=== PATIENT | male | born 1930 | race Caucasian/White ===

== ENCOUNTER 2017-03-10 00:04 | Inpatient (IN) | payer MEDICARE, OTHER ==
[~2017-03-10] VITALS: Ht 170.2 cm; Wt 78.5 kg
[~2017-03-10 00:04] MED LIST: ALLO100T PO; CELE200C PO; CLOP75TA2 PO; DOCU250C21 PO; DUTA0.5C PO; ESOM40CA PO; FENO145T PO; FLUT1DIS3 IH; GLYB5TAB7 PO; OLME1TAB3 PO; PARO20TA6 PO; RISE35TA PO; SITA100T PO; TAMS-12 PO
[2017-03-10] MEDS ORDERED: IV D5W 1,000 ML IV ONE ×3 (00:07→09:00)
--- NOTE | 2017-03-10 00:10 | NUR ---
TO BED 5 A 86 YO MALE [id number] FROM HOME. PER EMS REPORT, PT HAD POC BLOOD GLUCOSE "LOW", GLUCAGON GIVEN ON THE FIELD. UPON ARRIVAL TO ER, PATIENT IS AAOX3, BLOOD SUGAR WAS 40. VSS. NOTED WITH DRESSING INTACT AND CLEARN FROM PERICARDIAL DRAIN "A WEEK AGO." VSS. CARDIAC MONITORING ON. GOWNED. AWAITING FOR ER MD BECK.
--- NOTE | 2017-03-10 00:15 | NUR ---
DR CARRILLO AT BEDSIDE FOR EVAL.
[2017-03-10] MEDS ORDERED: IV SET PRIMARY PUMP SET 1 EA INFUS.SET MC ONE ×3 (00:16→09:26)
--- NOTE | 2017-03-10 00:21 | NUR ---
STARTED A SALINE LOCK ON THE LAC G18, BLOOD DRAWN AND SENT TO LAB.
[2017-03-10 00:30] LABS: BASOPHILS % (AUTO) 0.2 % (0.0-2.0); EOSINOPHILS % (AUTO) 0.2 % (0.0-6.0); HEMATOCRIT 27 % (39-51); HEMOGLOBIN 8.6 g/dL (13.5-17.5); LYMPHOCYTES # (AUTO) 0.4 /CMM (0.8-4.8); MEAN CORPUSCULAR HEMOGLOBIN 30 PG (26.0-33.0); MEAN CORPUSCULAR HGB CONC 32 g/dl (31.0-36.0); MEAN CORPUSCULAR VOLUME 91 fL (80-96); MONOCYTES # (AUTO) 1.1 /CMM (0.1-1.30); MONOCYTES % (AUTO) 10.3 % (2.0-12.0); NEUTROPHILS # (AUTO) 9.1 /CMM (1.8-8.9); NEUTROPHILS % (AUTO) 85.3 % (43.0-81.0); PLATELET COUNT (AUTO) 69 /CMM (150-450); RDW COEFFICIENT OF VARIATION 21.7 (11.5-15.0); RED BLOOD CELL COUNT(AUTO) 2.91 MIL/uL (4.5-6.0); WHITE BLOOD COUNT (AUTO) 10.6 K/uL (4.3-11.0)
[2017-03-10 00:42] LABS: CALCIUM, SERUM 7.6 mg/dL (8.5-10.1); CREATININE 2.8 mg/dL (0.6-1.3)
[2017-03-10 00:45] LABS: INR 1.14 (0.87-1.13); PROTHROMBIN TIME 12.3 SECS (9.5-12.7)
[2017-03-10 00:47] LABS: MAGNESIUM 1.6 mg/dL (1.8-2.4); PHOSPHORUS 1.6 mg/dL (2.5-4.9)
[2017-03-10] MEDS ORDERED: LATA2.5D2 EACHEYE (00:54)
[2017-03-10] MEDS ORDERED: ASPI81TA2 PO (00:54)
[2017-03-10] MEDS ORDERED: ROSU40TA PO (00:54)
[2017-03-10] MEDS ORDERED: DIGO125T PO (00:54)
[2017-03-10] MEDS ORDERED: MIDO5TAB PO (00:54)
[2017-03-10] MEDS ORDERED: MEMA28CA PO (00:54)
[2017-03-10] MEDS ORDERED: LISI2.5T2 PO (00:54)
[2017-03-10] MEDS ORDERED: COLC0.6C3 PO (00:54)
[2017-03-10] MEDS ORDERED: TIOT18CA3 INH (00:54)
[2017-03-10] MEDS ORDERED: LORA10TA7 PO (00:54)
[2017-03-10] MEDS ORDERED: AMIO200T2 PO (00:54)
[2017-03-10] MEDS ORDERED: TOLT4CAP14 PO (00:54)
[2017-03-10] MEDS ORDERED: METO25TA6 PO (00:54)
[2017-03-10 00:55] LABS: TROPONIN I 0.34 ng/mL (0.00-0.056)
[2017-03-10 00:57] LABS: BILIRUBIN,DIRECT 0.5 mg/dL (0.0-0.2); BILIRUBIN,TOTAL 0.9 mg/dL (0.2-1.0)
[2017-03-10 00:58] LABS: ALBUMIN 2.5 g/dL (3.4-5.0); DIGOXIN 1.05 ng/mL (0.90-2.00); TOTAL PROTEIN, SERUM 7.6 g/dL (6.4-8.2)
[2017-03-10 01:00] LABS: LACTIC ACID 2.3 mmol/L (0.4-2.0)
--- NOTE | 2017-03-10 01:12 | NUR ---
blood sugar rechecked, bs is 70mg/dl. Dr Phillips is notified.
[2017-03-10 01:28] LABS: ANISOCYTOSIS 1+; LYMPHOCYTES % (MANUAL) 9 % (16-48); MONOCYTES % (MANUAL) 11 % (0-11.0); NEUTROPHILS % (MANUAL) 80 (42-76); PLATELET ESTIMATE DECRE
[2017-03-10] MEDS: ALLOPURINOL 100 MG TABLET PO SCH ×2 (03:00→08:39)
[2017-03-10] MEDS ORDERED: IV D5/0.45 NACL 1,000 ML IV PRN (03:04)
--- NOTE | 2017-03-10 03:09 | NUR ---
Report given to Anna PAT chetna.
[2017-03-10 03:15] VITALS: BP 120/68
--- NOTE | 2017-03-10 03:15 | NUR ---
INDEPENDENT BEAUTY CONSULTANT ADMIT RECEIVED REPORT. PT AAOX3, CITIZ[place] SPEAKING. NO C/O OF PAIN OR DISCOMFORT AT THIS TIME. BREATHING NON-LABORED AND EVEN. ON 3L NC. TELE SHOWS V-PACING IN 60'S. HD CATH INTACT RCW. IV INTACT AND PATENT. NO S/S OF HYPOGLYCEMIA. VSS. SKIN ISSUES NOTED. LAST RECEIVED DIALYSIS YESTERDAY 03/09. ORIENATETD TO UNIT AND CALL LIGHT, WILL CONT TO MONITOR.
--- NOTE | 2017-03-10 03:18 | NUR ---
Transported to [place] [id number] via [facility], no incident noted. vss.
[2017-03-10] MEDS ORDERED: Z GUARD REMEDY 2 OZ OINT TP PRN (03:30)
[2017-03-10] MEDS ORDERED: HYDROCODONE/APAP 5/325MG 1 EACH TABLET PO PRN (03:30)
[2017-03-10] MEDS ORDERED: ZOLPIDEM TARTRATE 5 MG TABLET PO PRN (03:30)
[2017-03-10] MEDS ORDERED: MAGNESIUM HYDROXIDE 30 ML UDC PO PRN (03:30)
[2017-03-10] MEDS ORDERED: ONDANSETRON HCL/PF 4 MG/2 ML VIAL IVP PRN (03:30)
[2017-03-10] MEDS ORDERED: ACETAMINOPHEN 325 MG TABLET PO PRN (03:30)
[2017-03-10] MEDS ORDERED: MAG HYDROX/AL HYDROX/SIMETH 30 ML UDC PO PRN (03:30)
[2017-03-10] MEDS ORDERED: LACT10SO6 PO (04:54)
[2017-03-10] MEDS ORDERED: DUTA0.5C PO (04:54)
[2017-03-10] MEDS ORDERED: ERGO500047 PO (04:54)
[2017-03-10] MEDS ORDERED: ESOM40CA PO (04:54)
[2017-03-10] MEDS ORDERED: FLUT1DIS3 INH (04:54)
[2017-03-10] MEDS ORDERED: ICOS1CAP PO (04:54)
[2017-03-10] MEDS ORDERED: FEBU40TA PO (04:54)
[2017-03-10] MEDS ORDERED: GLIP5TAB13 PO (04:54)
--- NOTE | 2017-03-10 05:55 | NUR ---
RN NOTE PT BS 26, RECHECK 23, D50 AND ORANGE JUICE GIVEN. WILL CONT TO MONITOR.
[2017-03-10] MEDS ORDERED: DEXTROSE 50%-WATER 50 ML DISP.SYRIN ONE (06:00)
[2017-03-10] MEDS ORDERED: DEXTROSE 50%-WATER 50 ML DISP.SYRIN IVP PRN (06:30)
[2017-03-10] MEDS ORDERED: DEXTROSE 50%-WATER 50 ML DISP.SYRIN IVP ONE (06:30)
--- NOTE | 2017-03-10 06:54 | NUR ---
RN NOTE PT AAOX3, DENIES CP/SOB. ON 3L NC. NO S/S OF ANY DISTRESS. BS NOW 75, WAS GIVEN D50 AT 0600. IV INTACT AND PATENT TOLERATING D5-1/2 NS WELL AT 60 CC/HR. TELE SHOWS VPACING. FAMILY AT BEDSIDE. CALL LIGHT IN REACH, WILL F/U WITH DAY SHIFT FOR ERICK.
--- NOTE | 2017-03-10 07:30 | NUR ---
CORPORATE TREASURY ANALYST AM NOTES PATIENT IN BED, AAOX3, CROATIAN SPEAKING. ON 3L O2 NASAL CANULA, NAD, NO SOB, RESPIRATION UNLABORED, TELEMETRY READS V PACING HR 60, NO C/O OF PAIN OR DISCOMFORT AT THIS TIME. HD CATH INTACT RCW. LEFT FA 18G IV ACCESS WITH D5 1/2 NS INFUSING AT 60 ML/HR. SITE CLEAR. NO S/S OF HYPOGLYCEMIA. VSS. SEE NURSING FLOWSHEET FOR SKIN ISSUES. BED BOUND FOR NOW, CCHO DIET. CALL LIGHT WITHIN REACH, BED LOW LOCKED, SR UP X 2, AT BEDSIDE. WILL CONT TO MONITOR.
[2017-03-10 08:00] VITALS: BP 111/61
[2017-03-10] MEDS: PANTOPRAZOLE 40 MG TABLET.DR PO SCH (08:39)
[2017-03-10] MEDS: LORATADINE 10 MG TABLET PO SCH (08:39)
[2017-03-10] MEDS: ASPIRIN 81 MG TAB.CHEW PO SCH (08:39)
[2017-03-10] MEDS: DOCUSATE SODIUM 250 MG CAPSULE PO SCH (08:39)
[2017-03-10] MEDS: BLOOD SUGAR DIAGNOSTIC 1 EACH STRIP IN SCH ×4 (08:39→20:43)
[2017-03-10] MEDS: AMIODARONE HCL 200 MG TABLET PO SCH (08:40)
[2017-03-10] MEDS: METOPROLOL TARTRATE 25 MG TABLET PO SCH ×2 (08:41→16:56)
[2017-03-10] MEDS: FLUTICASONE/SALMETEROL DISKUS IH SCH ×2 (08:41→16:58)
[2017-03-10] MEDS: PAROXETINE HCL 20 MG TABLET PO SCH (08:46)
[2017-03-10] MEDS: TAMSULOSIN 0.4 MG CAP.SR.24H PO SCH (08:46)
[2017-03-10] MEDS: MIDODRINE HCL (5MG) 5 MG TABLET PO SCH (08:46)
[2017-03-10] MEDS ORDERED: TOLTERODINE TARTRATE 4 MG PO SCH (09:00)
[2017-03-10] MEDS: LISINOPRIL (5MG) 5 MG TABLET PO SCH (09:00)
[2017-03-10] MEDS ORDERED: TIOTROPIUM BROMIDE 6 CAP/BOX CAP.W.DEV IH SCH (09:00)
[2017-03-10] MEDS ORDERED: CELECOXIB 100 MG CAPSULE PO SCH (09:00)
[2017-03-10] MEDS ORDERED: Medication Not On Formulary EA (Sitagliptin Phosphate (Januvia) 100 MG) PO SCH (09:00)
[2017-03-10] MEDS ORDERED: FENOFIBRATE NANOCRYS (145 MG) 145 MG TABLET PO SCH (09:00)
[2017-03-10] MEDS ORDERED: Medication Not On Formulary EA (Esomeprazole Mag Trihydrate (Nexium) 40 MG) PO SCH (09:00)
[2017-03-10] MEDS ORDERED: LINAGLIPTIN 5 MG TABLET PO SCH (09:07)
[2017-03-10 09:28] LABS: MAGNESIUM 1.7 mg/dL (1.8-2.4)
[2017-03-10] MEDS ORDERED: COLCHICINE 0.6 MG TABLET PO PRN (09:30)
--- NOTE | 2017-03-10 09:30 | NUR ---
MS RN NOTES TELEMETRY DC'D BY DR. LOVING EARLIER. IVF SWITCHED TO D5W. ACCUCHECK DONE. BS 55 MG/DL, GAVE ORANGE JUICE AND BREAKFAST, REPEAT BS 57 MG/DL. ADMINISTERED D50 IV.
[2017-03-10] MEDS: DUTASTERIDE (0.5 MG) 0.5 MG CAPSULE PO SCH (10:11)
[2017-03-10] MEDS: TOLTERODINE 2 MG CAP.SR PO SCH (10:15)
--- NOTE | 2017-03-10 10:20 | NUR ---
MS RN NOTES BS RECHECKED. 123 MG/DL.
--- NOTE | 2017-03-10 12:15 | NUR ---
MS RN NOTES ACCUCHECK DONE. BS 94 MG/DL. NO INSULIN COVERAGE GIVEN.
[2017-03-10] MEDS ORDERED: HYDR20TA3 PO (12:30)
[2017-03-10] MEDS: DIGOXIN 0.125 MG TABLET PO SCH (13:00)
[2017-03-10] MEDS: ROSUVASTATIN CALCIUM 40 MG PO SCH (13:00)
[2017-03-10] MEDS: MEMANTINE HCL 28 MG PO SCH (13:00)
[2017-03-10] MEDS: IPRATROPIUM NEB FS 0.5 MG/2.5 ML AMPUL.NEB NEB SCH ×2 (14:15→19:24)
[2017-03-10 16:00] VITALS: BP 96/60
[2017-03-10 16:22] LABS: THYROID STIMULATING HORMONE 1.518 uIU/mL (0.358-3.74)
--- NOTE | 2017-03-10 16:57 | NUR ---
MS RN NOTES ACCUCHECK DONE. BS 49 MG/DL. GAVE D50. WILL RECHECK BS.
[2017-03-10] MEDS: DEXTROSE 50%-WATER 50 ML DISP.SYRIN IVP PRN (17:08)
--- NOTE | 2017-03-10 17:18 | NUR ---
MS RN NOTES BS RE CHECKED. 127 MG/DL. OFFERED DINNER TRAY. AT BEDSIDE.
[2017-03-10 18:00] VITALS: BP 96/60
--- NOTE | 2017-03-10 19:27 | NUR ---
MS RN CLOSING NOTES PATIENT RESTING IN BED, AAOX3, M[place]GAS[place] SPEAKING. AT BEDSIDE. ON 3L O2 NASAL CANULA, NAD, NO SOB, RESPIRATION UNLABORED, NO C/O OF PAIN OR DISCOMFORT AT THIS TIME. HD CATH INTACT RCW. LEFT FA 18G IV ACCESS WITH D5W INFUSING AT 70 ML/HR. SITE CLEAR. NO S/S OF HYPOGLYCEMIA. VSS. AMBULATES TO BATHROOM WITH ASSIST. CCHO DIET. CALL LIGHT WITHIN REACH, BED LOW LOCKED, SR UP X 2, ALL NEEDS MET. ENDORSED TO NEXT SHIFT FOR ERICK.
--- NOTE | 2017-03-10 19:30 | NUR ---
MS RN OPENING NOTES: PATIENT IN BED, AOX4, SAMOAN SPEAKING, FAMILY AT BEDSIDE TO HELP TRANSLATE. ON O2 AT 3 LPM VIA NC, BREATHING EVEN AND UNLABORED. BREATH SOUNDS DIMINISHED AT BASES. PATIENT HAS RCW HD CATH WITH CLEAN AND INTACT DRESSING. PIV OVER LFA G 18 INTACT AND PATENT, INFUSING WELL WITH D5W RUNNING AT 70 ML/HR. PROVIDED FOR COMFORT AND SAFETY. SIDERAILS UP X3, BED IN LOWEST AND LOCKED POSITION. WILL CONT TO MONITOR.
[2017-03-10 20:33] VITALS: BP 89/45
--- NOTE | 2017-03-10 20:45 | NUR ---
RN NOTES: BP CHECKED AT 89/45, RECHECKED AT 88/42. PER DAUGHTER, PATIENT'S MIDODRINE IS 5 MG PO BID PRN, NOT DAILY. INFORMED DR MENDEZ. PER MD, OK TO FOLLOW PER MEDICATION SCHEDULE. ORDER NOTED AND CARRIED OUT,
--- NOTE | 2017-03-10 20:56 | NUR ---
RN NOTES: PATIENT'S BLOOD SUGAR CHECKED AT 88 MG/DL AT THIS TIME. PROVIDED LIGHT SNACK TO PATIENT. WILL CONT TO MONITOR.
[2017-03-10] MEDS ORDERED: MIDODRINE HCL (5MG) 5 MG TABLET PO PRN (21:00)
[2017-03-10] MEDS: LATANOPROST EYE DROP 0.005% 2.5 ML BOTTLE EACHEYE SCH (21:15)
[2017-03-11] VITALS (11 sets, daily range): BP systolic 90–125; BP diastolic 42–72
[2017-03-11] MEDS: BLOOD SUGAR DIAGNOSTIC 1 EACH STRIP IN SCH ×6 (00:46→21:17)
[2017-03-11] MEDS: IPRATROPIUM NEB FS 0.5 MG/2.5 ML AMPUL.NEB NEB SCH ×4 (01:26→20:12)
[2017-03-11] MEDS: DEXTROSE 50%-WATER 50 ML DISP.SYRIN IVP PRN ×4 (01:28→17:36)
--- NOTE | 2017-03-11 01:32 | NUR ---
RN NOTES: PATIENT'S BS: 40. CHECKED BY LAB AT 38. ADMINISTERED 1 AMP DEXTROSE 50 %. PATIENT AOX3, NO ACUTE CHANGE IN LOC. WILL CONT TO MONITOR.
--- NOTE | 2017-03-11 02:17 | NUR ---
RN NOTES: PATIENT'S BS CHECKED AT 63 MG/DL. NO CHANGES IN LOC AT THIS TIME. WILL CONT TO MONITOR.
--- NOTE | 2017-03-11 03:12 | NUR ---
RN NOTES: RECHECKED PATIENT'S BS: 70 MG/DL. GAVE LIGHT SNACK. WILL CONT TO MONITOR.
--- NOTE | 2017-03-11 05:00 | NUR ---
RN NOTES: PATIENT'S BS: 103. WILL CONT TO MONITOR.
[2017-03-11 07:20] LABS: HEMATOCRIT 23 % (39-51); HEMOGLOBIN 7.4 g/dL (13.5-17.5); LYMPHOCYTES # (AUTO) 0.7 /CMM (0.8-4.8); LYMPHOCYTES % (AUTO) 6.9 % (20.0-44.0); MEAN CORPUSCULAR HEMOGLOBIN 30 PG (26.0-33.0); MEAN CORPUSCULAR HGB CONC 32 g/dl (31.0-36.0); MEAN CORPUSCULAR VOLUME 92 fL (80-96); MONOCYTES # (AUTO) 1.9 /CMM (0.1-1.30); MONOCYTES % (AUTO) 18.3 % (2.0-12.0); NEUTROPHILS # (AUTO) 7.6 /CMM (1.8-8.9); NEUTROPHILS % (AUTO) 74.8 % (43.0-81.0); PLATELET COUNT (AUTO) 63 /CMM (150-450); RDW COEFFICIENT OF VARIATION 21.8 (11.5-15.0); WHITE BLOOD COUNT (AUTO) 10.1 K/uL (4.3-11.0)
[2017-03-11] MEDS ORDERED: PANTOPRAZOLE 40 MG TABLET.DR PO SCH (07:30)
--- NOTE | 2017-03-11 07:30 | NUR ---
MS RN CLOSING NOTES: PATIENT IN BED, AOX4, ON O2 AT 3 LPM VIA NC, BREATHING EVEN AND UNLABORED. REMAINED ANURIC THROUGH SHIFT. PIV OVER LFA G18 INTACT NAD PATENT TO FLUSH. DUE MEDS GIVEN. GAVE SMALL FREQUENT SNACKS THROUGH SHIFT. PROVIDED FOR COMFORT AND SAFETY, BED IN LOWEST AND LOCKED POSITION AND SIDERAILS UP X3. ENDORSED TO AM BI العلي FOR ERICK.
--- NOTE | 2017-03-11 07:38 | NUR ---
RN MS OPENING NOTES RECEIVED PATIENT IN BED, AWAKE, HEAD OF BED ELEVATED, NO SOB OR DISTRESS NOTED, ON O2 3LPM VIA NC AND TOLERATED WELL. ALERT AND ORIENTED TIMES 4. IV INTACT AND PATENT. KEPT PATIENT CLEAN AND COMFORTABLE IN BED, CALL LIGHT WITHIN PATIENT REACH, WILL CONTINUE TO MONITOR ACCORDINGLY
[2017-03-11 07:47] LABS: ALBUMIN 2.2 g/dL (3.4-5.0); BILIRUBIN,TOTAL 0.8 mg/dL (0.2-1.0); CALCIUM, SERUM 7.5 mg/dL (8.5-10.1); CREATININE 3.8 mg/dL (0.6-1.3); MAGNESIUM 1.6 mg/dL (1.8-2.4); PHOSPHORUS 1.6 mg/dL (2.5-4.9); POTASSIUM 4.8 mmol/L (3.5-5.1); TOTAL PROTEIN, SERUM 6.5 g/dL (6.4-8.2)
[2017-03-11 07:53] LABS: ANISOCYTOSIS 1+; BAND % (MANUAL) 4 % (0.0-5.0); LYMPHOCYTES % (MANUAL) 7 % (16-48); MONOCYTES % (MANUAL) 9 % (0-11.0); NEUTROPHILS % (MANUAL) 80 (42-76); PLATELET ESTIMATE DECREASED
[2017-03-11] MEDS: PANTOPRAZOLE 40 MG TABLET.DR PO SCH (08:34)
[2017-03-11] MEDS: MIDODRINE HCL (5MG) 5 MG TABLET PO SCH (08:36)
[2017-03-11] MEDS: DOCUSATE SODIUM 250 MG CAPSULE PO SCH (08:37)
[2017-03-11] MEDS: LORATADINE 10 MG TABLET PO SCH (08:38)
[2017-03-11] MEDS: HYDROCORTISONE 5 MG TABLET PO SCH (08:39)
[2017-03-11] MEDS: TAMSULOSIN 0.4 MG CAP.SR.24H PO SCH (08:40)
[2017-03-11] MEDS: PAROXETINE HCL 20 MG TABLET PO SCH (08:40)
[2017-03-11] MEDS: TOLTERODINE 2 MG CAP.SR PO SCH (08:52)
[2017-03-11] MEDS: DUTASTERIDE (0.5 MG) 0.5 MG CAPSULE PO SCH (08:52)
[2017-03-11] MEDS: AMIODARONE HCL 200 MG TABLET PO SCH (09:00)
[2017-03-11] MEDS: MEMANTINE HCL 28 MG PO SCH (09:00)
[2017-03-11] MEDS: LISINOPRIL (5MG) 5 MG TABLET PO SCH (09:00)
[2017-03-11] MEDS: METOPROLOL TARTRATE 25 MG TABLET PO SCH ×2 (09:00→17:00)
[2017-03-11] MEDS: ROSUVASTATIN CALCIUM 40 MG PO SCH (09:00)
--- NOTE | 2017-03-11 09:28 | NUR ---
PAGED DR. DOYLE REGARDING LOW BLOOD SUGAR. WILL CLARIFY DEXTROSE ORDER PARAMETERS.
[2017-03-11] MEDS: FLUTICASONE/SALMETEROL DISKUS IH SCH ×2 (09:34→17:30)
[2017-03-11] MEDS ORDERED: EPOETIN ALFA (20,000 UNIT) 20,000 UNIT/ML VIAL IV ONE (11:30)
--- NOTE | 2017-03-11 11:35 | NUR ---
PAGED DR. DOYLE REGARDING BLOOD SUGAR AND BP
[2017-03-11] MEDS ORDERED: IV SET PRIMARY PUMP SET 1 EA INFUS.SET MC ONE (13:30)
[2017-03-11] MEDS ORDERED: IV D5/ 0.9% NACL 1,000 ML IV ONE (13:30)
[2017-03-11] MEDS ORDERED: BLOOD IV SET 1 EA INFUS.SET MC ONE (14:34)
[2017-03-11] MEDS ORDERED: IV NS 0.9% 250 ML IV ONE (14:35)
[2017-03-11] MEDS ORDERED: K PHOS NEUTRAL 250 MG TABLET PO ONE (16:30)
--- NOTE | 2017-03-11 18:25 | NUR ---
RN NOTES BLOOD GLUCOSE 96
--- NOTE | 2017-03-11 18:45 | NUR ---
RN NOTES PATIENT RECEIVED ONE UNIT OF BLOOD WITHOUT ANY REACTIONS. VITALS STABLE
--- NOTE | 2017-03-11 19:30 | NUR ---
RN CLOSING NOTES ALL NEEDS PROVIDED, ATTENDED AND ANTICIPATED. KEPT PATIENT CLEAN AND COMFORTABLE IN BED, CALL LIGHT WITHIN PATIENT REACH , WILL CONTINUE TO MONITOR ACCORDINGLY. ENDORSED TO NEXT SHIFT RN TO CONTINUE CARE
[2017-03-11] MEDS: LATANOPROST EYE DROP 0.005% 2.5 ML BOTTLE EACHEYE SCH (22:24)
[2017-03-12] MEDS: BLOOD SUGAR DIAGNOSTIC 1 EACH STRIP IN SCH ×6 (01:00→20:48)
[2017-03-12] MEDS: IPRATROPIUM NEB FS 0.5 MG/2.5 ML AMPUL.NEB NEB SCH ×4 (01:57→19:46)
[2017-03-12 07:36] LABS: CREATININE 3.2 mg/dL (0.6-1.3); PHOSPHORUS 2.6 mg/dL (2.5-4.9); POTASSIUM 5.1 mmol/L (3.5-5.1)
--- NOTE | 2017-03-12 07:44 | NUR ---
RN NOTES RECEIVED PATIENT IN BED, ASLEEP EASILY AROUSABLE DURING CARE, HEAD OF BED ELEVATED, NO SOB OR DISTRESS NOTED, ON O2 3LPM VIA NC AND TOLERATED WELL. ALERT AND ORIENTED X 4. IV INTACT AND PATENT, NO REDNESS OR INFILTRATION. KEPT PATIENT CLEAN AND COMFORTABLE IN BED, CALL LIGHT WITHIN PATIENT REACH, WILL CONTINUE TO MONITOR
[2017-03-12 08:00] VITALS: BP 110/60
[2017-03-12] MEDS: ROSUVASTATIN CALCIUM 40 MG PO SCH (08:32)
[2017-03-12] MEDS: MEMANTINE HCL 28 MG PO SCH (08:32)
[2017-03-12] MEDS: HYDROCORTISONE 5 MG TABLET PO SCH (08:32)
[2017-03-12] MEDS: ASPIRIN 81 MG TAB.CHEW PO SCH (08:32)
[2017-03-12] MEDS: LORATADINE 10 MG TABLET PO SCH (08:33)
[2017-03-12] MEDS: PAROXETINE HCL 20 MG TABLET PO SCH (08:33)
[2017-03-12] MEDS: TAMSULOSIN 0.4 MG CAP.SR.24H PO SCH (08:33)
[2017-03-12] MEDS: AMIODARONE HCL 200 MG TABLET PO SCH (08:33)
[2017-03-12] MEDS: MIDODRINE HCL (5MG) 5 MG TABLET PO SCH (08:33)
[2017-03-12] MEDS: PANTOPRAZOLE 40 MG TABLET.DR PO SCH (08:33)
[2017-03-12] MEDS: TOLTERODINE 2 MG CAP.SR PO SCH (08:34)
[2017-03-12] MEDS: DUTASTERIDE (0.5 MG) 0.5 MG CAPSULE PO SCH (08:35)
[2017-03-12] MEDS: FLUTICASONE/SALMETEROL DISKUS IH SCH ×2 (08:40→16:18)
[2017-03-12] MEDS: DOCUSATE SODIUM 250 MG CAPSULE PO SCH (08:41)
[2017-03-12] MEDS: METOPROLOL TARTRATE 25 MG TABLET PO SCH ×2 (09:00→16:14)
[2017-03-12] MEDS: LISINOPRIL (5MG) 5 MG TABLET PO SCH (09:00)
--- NOTE | 2017-03-12 11:16 | NUR ---
RN NOTES PATIENT SEEN BY DR. DIAZ WITH NO NEW ORDERS AT THIS TIME WILL CONTINUE TO MONITOR
[2017-03-12] MEDS: DIGOXIN 0.125 MG TABLET PO SCH (12:05)
[2017-03-12 16:00] VITALS: BP 109/63
--- NOTE | 2017-03-12 19:01 | NUR ---
RN NOTES PATIENT IN BED, ASLEEP EASILY AROUSABLE DURING CARE, HEAD OF BED ELEVATED, NO SOB OR DISTRESS NOTED, ON O2 3LPM VIA NC AND TOLERATED WELL. ALERT AND ORIENTED X 4. IV INTACT AND PATENT, NO REDNESS OR INFILTRATION. PT CURRENTLY HAVING DIALYSIS TREATMENT. KEPT PATIENT CLEAN AND COMFORTABLE IN BED, CALL LIGHT WITHIN PATIENT REACH, WILL CONTINUE TO MONITOR AND ENDORSE TO NEXT SHIFT FOR CONTINUITY OF CARE
--- NOTE | 2017-03-12 19:30 | NUR ---
MSRN FULLY AWAKE, FAMILY AT BEDSIDE. HD ON PROGRESS. TO CONTINUE.
[2017-03-12 20:00] VITALS: BP 96/53
--- NOTE | 2017-03-12 20:30 | NUR ---
MSRN HD DONE RECEIVED REPORT FROM HD NURSE. 2L OUT, V/S STABLE. LATE DINNER SERVED ASSISTED BY FAMILY. BS WAS 141 AT THIS TIME PRIOR TO DINNER.
[2017-03-12] MEDS: LATANOPROST EYE DROP 0.005% 2.5 ML BOTTLE EACHEYE SCH (20:50)
--- NOTE | 2017-03-12 22:00 | NUR ---
MSRN DUE EYEDROP ADMINISTERED. FAMILY TO STAY FOR AWHILE.
[2017-03-13] MEDS: IPRATROPIUM NEB FS 0.5 MG/2.5 ML AMPUL.NEB NEB SCH ×4 (01:13→19:08)
[2017-03-13] MEDS: BLOOD SUGAR DIAGNOSTIC 1 EACH STRIP IN SCH ×6 (01:40→21:47)
--- NOTE | 2017-03-13 01:44 | NUR ---
MSRN BS 163
--- NOTE | 2017-03-13 06:09 | NUR ---
MSRN NO DISCOMFORTS MADE, BS THIS TIME WAS 126. REMAINS AT BEDSIDE.
--- NOTE | 2017-03-13 07:15 | NUR ---
MS/RN AM NOTES RECEIVED PATINE IN BED, AWAKE, ALERT, AZERI SPEAKING, NO SOB, DENIES PAIN. OXYGEN 2L/M VIA N/C WITH O2 SATURATION 95%, NO CHEST PAIN, RESTING COMFORTABLY. IV PERIPHERAL LINE ON LFA INTACT, PATENT. RIGHT UPPER CHEST HEMODIALYSIS CATHETER INTACT, PATENT WITH DRY DRESSING, NO S/SX INFECTION, NO BLEEDING. KEPT COMFORTABLE, NEEDS MET IN TIMELY MANNER, WITH CALL LIGHT WITHIN EASY REACH. WILL CONTINUE TO MONITOR ACCORDINGLY
[2017-03-13 07:31] LABS: CALCIUM, SERUM 8.3 mg/dL (8.5-10.1); CREATININE 3.3 mg/dL (0.6-1.3); POTASSIUM 5.3 mmol/L (3.5-5.1)
[2017-03-13 08:00] VITALS: BP 126/74
[2017-03-13] MEDS: HYDROCORTISONE 5 MG TABLET PO SCH (08:17)
[2017-03-13] MEDS: PANTOPRAZOLE 40 MG TABLET.DR PO SCH (08:19)
[2017-03-13] MEDS: AMIODARONE HCL 200 MG TABLET PO SCH (08:19)
[2017-03-13] MEDS: TAMSULOSIN 0.4 MG CAP.SR.24H PO SCH (08:20)
[2017-03-13] MEDS: DOCUSATE SODIUM 250 MG CAPSULE PO SCH (08:21)
[2017-03-13] MEDS: DUTASTERIDE (0.5 MG) 0.5 MG CAPSULE PO SCH (08:21)
[2017-03-13] MEDS: METOPROLOL TARTRATE 25 MG TABLET PO SCH ×2 (08:22→17:00)
[2017-03-13] MEDS: LORATADINE 10 MG TABLET PO SCH (08:22)
[2017-03-13] MEDS: PAROXETINE HCL 20 MG TABLET PO SCH (08:22)
[2017-03-13] MEDS: LISINOPRIL (5MG) 5 MG TABLET PO SCH (08:23)
[2017-03-13] MEDS: MIDODRINE HCL (5MG) 5 MG TABLET PO SCH (08:23)
[2017-03-13] MEDS: MEMANTINE HCL 28 MG PO SCH (08:24)
[2017-03-13] MEDS: ROSUVASTATIN CALCIUM 40 MG PO SCH (08:24)
[2017-03-13] MEDS: TOLTERODINE 2 MG CAP.SR PO SCH (08:25)
[2017-03-13] MEDS: FLUTICASONE/SALMETEROL DISKUS IH SCH ×2 (08:32→18:13)
--- NOTE | 2017-03-13 08:34 | NUR ---
RN NOTES BLOOD SUGAR CHECKED 123, WITH GOOD APPETITE, NO CHANGES IN CONDITION NOTE, REFUSED CLARITIN, PAROXETINE. MORNING BLOOD PRESSURE MEDS, B/P READING 126/74, 90, WILL INFORM
[2017-03-13 09:48] LABS: BASOPHILS % (AUTO) 0.3 % (0.0-2.0); HEMATOCRIT 25 % (39-51); LYMPHOCYTES # (AUTO) 0.6 /CMM (0.8-4.8); MEAN CORPUSCULAR HEMOGLOBIN 30 PG (26.0-33.0); MEAN CORPUSCULAR HGB CONC 32 g/dl (31.0-36.0); MEAN CORPUSCULAR VOLUME 92 fL (80-96); MONOCYTES # (AUTO) 1.1 /CMM (0.1-1.30); MONOCYTES % (AUTO) 17.7 % (2.0-12.0); NEUTROPHILS # (AUTO) 4.6 /CMM (1.8-8.9); PLATELET COUNT (AUTO) 54 /CMM (150-450); RDW COEFFICIENT OF VARIATION 20.9 (11.5-15.0); RED BLOOD CELL COUNT(AUTO) 2.67 MIL/uL (4.5-6.0); WHITE BLOOD COUNT (AUTO) 6.4 K/uL (4.3-11.0)
[2017-03-13] MEDS ORDERED: IV NS 0.9% 1,000 ML ONE (09:50)
[2017-03-13 10:00] VITALS: BP 126/74
--- NOTE | 2017-03-13 11:00 | NUR ---
RN NOTES DR. MACKEY, AND DR. LOVING VISITED, EXAMINED PATIENT ORDERED TO REMOVE SUTURE FROM THORACIC SURGICAL SITE, AND APPLY STERI-STRIP. PROCEDURE DONE ASEPTICALLY, 1 SUTURE REMOVED, TOLERATED WELL, DENIES PAIN, NO BLEEDING NO DRAINAGE, DRY AND CLEAN WOUND COVERED WITH STERI-STRIP. WILL CONTINUE TO MONITOR
--- NOTE | 2017-03-13 11:00 | NUR ---
RN NOTES PATIENT AGREED TO TAKE MIDODRINE. GIVEN DURING DIALYSIS. BLOOD PRESSURE 99/56, 80, IN STABLE CONDITION, WILL CONTINUE TO MONITOR.
--- NOTE | 2017-03-13 11:00 | NUR ---
RN NOTES HEMODIALYSIS DONE, PATIENT TOLERATED WELL, MO CHANGES IN CONDITION, BLOOD PRESSURE 95/45, P-80, 2.5 L FLUID REMOVED, WILL CONTINUE TO MONITOR
[2017-03-13 13:53] LABS: LYMPHOCYTES % (MANUAL) 7 % (16-48); MONOCYTES % (MANUAL) 18 % (0-11.0); NEUTROPHILS % (MANUAL) 75 (42-76)
[2017-03-13 13:54] LABS: ANISOCYTOSIS 2+; PLATELET ESTIMATE DECREASED
[2017-03-13 16:00] VITALS: BP 110/63
--- NOTE | 2017-03-13 18:00 | NUR ---
RN NOTES BLOOD SUGAR CHECKED 167, RESTING COMFORTABLY IN THE BED, NO CHANGES IN CONDITION DINNER TOLERATED WELL
--- NOTE | 2017-03-13 18:15 | NUR ---
RN CLOSING NOTES PATIENT REMAINS STABLE DURING THE SHIFT NO CHANGES IN CONDITION, BLOOD SUGAR WITHIN NORMAL RANGE NO HYPO OR HYPERGLYCEMIA NOTED, NO SOB, DENIES CHEST PAUN, RESTING COMFORTABLY IN THE BED SPOUSE AT THE BEDSIDE. KEPT CLEAN, DRY NEEDS MET IN TIMELY MANNER WITH CALL LIGHT WITHIN EASY REACH. WILL ENDORSE TO THE PERFORMANCE SPECIALIST NURSE ACCORDINGLY FOR ERICK
--- NOTE | 2017-03-13 19:30 | NUR ---
MSRN FULLY AWAKE, FAMILY AT BEDSIDE. VERY SUPPORTIVE. PATIENT EAGER TO GO HOME, EXPLAINED NEED TO STAY REHAB FOR AWHILE. ALL NEEDS ATTENEDED, TO CONTINUE.
[2017-03-13 20:00] VITALS: BP 117/70
--- NOTE | 2017-03-13 21:30 | NUR ---
ALDA BS 173 OF THIS TIME. NO INTERVENTION. FAMILY STAYED LATE
[2017-03-13] MEDS: LATANOPROST EYE DROP 0.005% 2.5 ML BOTTLE EACHEYE SCH (21:46)
[2017-03-14] MEDS: IPRATROPIUM NEB FS 0.5 MG/2.5 ML AMPUL.NEB NEB SCH ×4 (00:54→19:30)
[2017-03-14] MEDS: BLOOD SUGAR DIAGNOSTIC 1 EACH STRIP IN SCH ×5 (01:55→17:21)
--- NOTE | 2017-03-14 02:07 | NUR ---
MSRN BS 127. WENT BACK TO SLEEP. AT BEDSIDE
--- NOTE | 2017-03-14 06:12 | NUR ---
MSRN BS 105. NO NEEDS MADE.
[2017-03-14 07:26] LABS: CALCIUM, SERUM 8.1 mg/dL (8.5-10.1); CREATININE 3.3 mg/dL (0.6-1.3); MAGNESIUM 1.6 mg/dL (1.8-2.4); PHOSPHORUS 3.7 mg/dL (2.5-4.9); POTASSIUM 4.9 mmol/L (3.5-5.1)
[2017-03-14 07:46] LABS: BASOPHILS % (AUTO) 0.2 % (0.0-2.0); HEMATOCRIT 24 % (39-51); HEMOGLOBIN 7.9 g/dL (13.5-17.5); LYMPHOCYTES # (AUTO) 0.8 /CMM (0.8-4.8); LYMPHOCYTES % (AUTO) 12.1 % (20.0-44.0); MEAN CORPUSCULAR HEMOGLOBIN 30 PG (26.0-33.0); MEAN CORPUSCULAR HGB CONC 33 g/dl (31.0-36.0); MEAN CORPUSCULAR VOLUME 91 fL (80-96); MONOCYTES # (AUTO) 1.2 /CMM (0.1-1.30); MONOCYTES % (AUTO) 18.5 % (2.0-12.0); NEUTROPHILS # (AUTO) 4.5 /CMM (1.8-8.9); NEUTROPHILS % (AUTO) 69.2 % (43.0-81.0); PLATELET COUNT (AUTO) 56 /CMM (150-450); RDW COEFFICIENT OF VARIATION 20.2 (11.5-15.0); RED BLOOD CELL COUNT(AUTO) 2.62 MIL/uL (4.5-6.0); WHITE BLOOD COUNT (AUTO) 6.6 K/uL (4.3-11.0)
[2017-03-14 08:00] VITALS: BP 118/72
--- NOTE | 2017-03-14 08:00 | NUR ---
MS/RN AM NOTES RECEIVED PATIENT IN BED, AWAKE, ALERT, TANZANIAN SPEAKING, NO SOB, DENIES PAIN. OXYGEN 2L/M VIA N/C WITH O2 SATURATION 95%, NO CHEST PAIN, RESTING COMFORTABLY. IV PERIPHERAL LINE ON LAC INTACT, PATENT. RIGHT UPPER CHEST HEMODIALYSIS CATHETER INTACT, PATENT WITH DRY DRESSING, NO S/SX INFECTION, NO BLEEDING. KEPT COMFORTABLE, ATTENDED NEEDS.CALL LIGHT WITHIN EASY REACH. WILL CONTINUE TO MONITOR ACCORDINGLY
[2017-03-14] MEDS: PANTOPRAZOLE 40 MG TABLET.DR PO SCH (08:29)
[2017-03-14 08:36] LABS: LYMPHOCYTES % (MANUAL) 9 % (16-48)
[2017-03-14 08:37] LABS: ANISOCYTOSIS 2+; BAND % (MANUAL) 10 % (0.0-5.0); BASOPHILS % (MANUAL) 0 % (0.0-2.0); EOSINOPHILS % (MANUAL) 0 % (0-4); MONOCYTES % (MANUAL) 6 % (0-11.0); NEUTROPHILS % (MANUAL) 75 (42-76); PLATELET ESTIMATE DECREASED
[2017-03-14] MEDS: HYDROCORTISONE 5 MG TABLET PO SCH (08:53)
[2017-03-14] MEDS: DOCUSATE SODIUM 250 MG CAPSULE PO SCH (08:55)
[2017-03-14] MEDS: DUTASTERIDE (0.5 MG) 0.5 MG CAPSULE PO SCH (08:56)
[2017-03-14] MEDS: LORATADINE 10 MG TABLET PO SCH (08:56)
[2017-03-14] MEDS: MIDODRINE HCL (5MG) 5 MG TABLET PO SCH (08:59)
[2017-03-14] MEDS: TOLTERODINE 2 MG CAP.SR PO SCH (08:59)
[2017-03-14] MEDS: METOPROLOL TARTRATE 25 MG TABLET PO SCH ×2 (09:02→17:12)
[2017-03-14] MEDS: ASPIRIN 81 MG TAB.CHEW PO SCH (09:02)
[2017-03-14] MEDS: TAMSULOSIN 0.4 MG CAP.SR.24H PO SCH (09:02)
[2017-03-14] MEDS: PAROXETINE HCL 20 MG TABLET PO SCH (09:03)
[2017-03-14] MEDS: AMIODARONE HCL 200 MG TABLET PO SCH (09:04)
[2017-03-14] MEDS: LISINOPRIL (5MG) 5 MG TABLET PO SCH (09:09)
[2017-03-14] MEDS: FLUTICASONE/SALMETEROL DISKUS IH SCH ×2 (09:10→17:01)
[2017-03-14] MEDS: ROSUVASTATIN CALCIUM 40 MG PO SCH (09:12)
[2017-03-14] MEDS: MEMANTINE HCL 28 MG PO SCH (09:12)
[2017-03-14] MEDS ORDERED: VIT B CMPLX 3/FA/VIT C/BIOTIN 1 TAB TABLET PO SCH (13:30)
[2017-03-14] MEDS: Magnesium 1GM/D5W 100ML PREMIX 100 ML IV SCH ×2 (14:28→15:57)
[2017-03-14] MEDS: DIGOXIN 0.125 MG TABLET PO SCH (14:31)
[2017-03-14 16:00] VITALS: BP 110/87
[2017-03-14 17:12] VITALS: BP 110/87
--- NOTE | 2017-03-14 19:55 | NUR ---
DISCHARGED PT TO [facility] VIA AMBULANCE WITH STABLE V/S.REPORT CALLED TO [facility] AND IV H/L REMOVED TO LEFT AC WITHOUT BLEEDING NOTED. AND DAUGHTER AT BEDSIDE AND GIVEN COPY OF THE DISCHARGE PAPERS PER REQUEST.
[2017-03-16 14:20] LABS: HEPATITIS B CORE AB, IgM Negative (Negative); HEPATITIS B CORE AB, TOTAL Negative (Negative); HEPATITIS B SURFACE AB Reactive (.); HEPATITIS C VIRUS AB <0.1 s/co ratio (0.0-0.9)
== END 2017-03-14 19:56 | DRG 280 ==
LOC: ER 00:06 → TELE 03:05 → MED 09:01
PROVIDERS: ADMIT Internal Medicine; ATTEND Internal Medicine
PROC: 30233N1 Transfusion of Nonautologous Red Blood Cells into Peripheral Vein, Percutaneous Approach (ICD-10-PCS; principal; 2017-03-11)
PROC: 5A1D60Z (ICD-10-PCS; 2017-03-11)
DX: I13.2 Hypertensive heart and chronic kidney disease with heart failure and with stage 5 chronic kidney disease, or end stage renal disease (principal); I21.4 Non-ST elevation (NSTEMI) myocardial infarction; N18.6 End stage renal disease; I50.23 Acute on chronic systolic (congestive) heart failure; C90.00 Multiple myeloma not having achieved remission; E44.0 Moderate protein-calorie malnutrition; E09.649 Drug or chemical induced diabetes mellitus with hypoglycemia without coma; E11.22 Type 2 diabetes mellitus with diabetic chronic kidney disease; Z99.2 Dependence on renal dialysis; K21.9 Gastro-esophageal reflux disease without esophagitis; E83.42 Hypomagnesemia; E87.5 Hyperkalemia; I25.10 Atherosclerotic heart disease of native coronary artery without angina pectoris; E78.5 Hyperlipidemia, unspecified; E83.39 Other disorders of phosphorus metabolism; E66.9 Obesity, unspecified; I48.91 Unspecified atrial fibrillation; Z86.73 Personal history of transient ischemic attack (TIA), and cerebral infarction without residual deficits; Z95.810 Presence of automatic (implantable) cardiac defibrillator; Z68.27 Body mass index [BMI] 27.0-27.9, adult; E83.9 Disorder of mineral metabolism, unspecified; D64.9 Anemia, unspecified; Y92.009 Unspecified place in unspecified non-institutional (private) residence as the place of occurrence of the external cause; T38.3X5A Adverse effect of insulin and oral hypoglycemic [antidiabetic] drugs, initial encounter; Z79.84 Long term (current) use of oral hypoglycemic drugs
CPT/HCPCS: 36415; 71010-TC; 80048-TC; 80053-TC; 80061-TC; 80076-TC; 80162-TC; 82728-TC; 82947-TC; 82962-TC; 83540-TC; 83605-TC; 83735-TC; 83880; 84100-TC; 84439-TC; 84443-TC; 84484-TC; 85025-TC; 85730-TC; 86704; 86705; 86706; 86803; 86850-TC; 86921-TC; 87081-TC; 87340; 90935-TC; 93307-TC; 94799-TC; 97001-TC; 97116-TC; 97530-TC; A4606; A6402; J0885; J3475; J7030; J7042; J7050; J7060; J7070; P9016-BL; Z7610

== ENCOUNTER 2017-03-15 19:22 | Inpatient (IN) | payer MEDICARE, OTHER ==
[~2017-03-15] VITALS: Ht 175.3 cm; Wt 93.4 kg
[~2017-03-15 19:22] MED LIST changes: -ALLO100T PO; +AMIO200T2 PO; +ASPI81TA2 PO; -CELE200C PO; -CLOP75TA2 PO; +COLC0.6C3 PO; +DIGO125T PO; +ERGO500047 PO; +FEBU40TA PO; -FENO145T PO; -GLYB5TAB7 PO; +HYDR20TA3 PO; +ICOS1CAP PO; +LACT10SO6 PO; +LATA2.5D2 EACHEYE; +LISI2.5T2 PO; +LORA10TA7 PO; +MEMA28CA PO; +METO25TA6 PO; +MIDO5TAB PO; -OLME1TAB3 PO; +ROSU40TA PO; -SITA100T PO; +TIOT18CA3 INH; +TOLT4CAP14 PO
[2017-03-15 20:00] LABS: BASOPHILS # (AUTO) 0.5 /CMM (0.0-0.2); HEMATOCRIT 27 % (39-51); HEMOGLOBIN 8.3 g/dL (13.5-17.5); LYMPHOCYTES # (AUTO) 0.8 /CMM (0.8-4.8); LYMPHOCYTES % (AUTO) 12.3 % (20.0-44.0); MEAN CORPUSCULAR HEMOGLOBIN 29 PG (26.0-33.0); MEAN CORPUSCULAR HGB CONC 31 g/dl (31.0-36.0); MEAN CORPUSCULAR VOLUME 92 fL (80-96); MONOCYTES # (AUTO) 1.1 /CMM (0.1-1.30); MONOCYTES % (AUTO) 17.1 % (2.0-12.0); NEUTROPHILS # (AUTO) 3.9 /CMM (1.8-8.9); NEUTROPHILS % (AUTO) 62.2 % (43.0-81.0); PLATELET COUNT (AUTO) 71 /CMM (150-450); RED BLOOD CELL COUNT(AUTO) 2.89 MIL/uL (4.5-6.0); WHITE BLOOD COUNT (AUTO) 6.3 K/uL (4.3-11.0)
[2017-03-15 20:02] LABS: BASOPHILS % (AUTO) 8.4 % (0.0-2.0)
[2017-03-15 20:13] LABS: CALCIUM, SERUM 8.2 mg/dL (8.5-10.1); CREATININE 4.6 mg/dL (0.6-1.3); POTASSIUM 5.8 mmol/L (3.5-5.1)
[2017-03-15 20:17] LABS: INR 1.2 (0.87-1.13); PROTHROMBIN TIME 12.6 SECS (9.5-12.7)
[2017-03-15 20:50] LABS: BAND % (MANUAL) 2 % (0.0-5.0); LYMPHOCYTES % (MANUAL) 12 % (16-48); MONOCYTES % (MANUAL) 18 % (0-11.0); NEUTROPHILS % (MANUAL) 68 (42-76)
[2017-03-15] MEDS ORDERED: CALCIUM CHLORIDE 1,000 MG/10 ML DISP.SYRIN IV ONE (21:30)
[2017-03-15] MEDS ORDERED: DEXTROSE 50%-WATER 50 ML DISP.SYRIN IV ONE (21:30)
[2017-03-15] MEDS ORDERED: SODIUM BICARBONATE SYR 50 MEQ/50 ML DISP.SYRIN IV ONE (21:30)
[2017-03-15] MEDS ORDERED: INSULIN REGULAR, HUMAN 100 UNIT/ML 10 ML VIAL IV ONE (21:30)
[2017-03-15] MEDS ORDERED: SODIUM POLYSTYRENE SULFONATE 15 G/60 ML BOTTLE PO ONE (21:30)
[2017-03-15] MEDS ORDERED: SODIUM POLYSTYRENE SULFONATE 15 G/60 ML BOTTLE ONE (21:34)
[2017-03-15] MEDS ORDERED: CALCIUM CHLORIDE 1,000 MG/10 ML DISP.SYRIN ONE (21:35)
[2017-03-15] MEDS ORDERED: DEXTROSE 50%-WATER 50 ML DISP.SYRIN ONE (21:35)
[2017-03-15] MEDS ORDERED: SODIUM BICARBONATE SYR 50 MEQ/50 ML DISP.SYRIN ONE (21:35)
[2017-03-15] MEDS ORDERED: INSULIN REGULAR, HUMAN 100 UNIT/ML 10 ML VIAL ONE (21:35)
[2017-03-15] MEDS ORDERED: IV SET PRIMARY PUMP SET 1 EA INFUS.SET MC ONE (21:40)
[2017-03-15] MEDS ORDERED: IV NS 0.9% 50 ML IV ONE (21:40)
[2017-03-15 22:46] VITALS: BP 126/66
[2017-03-15] MEDS ORDERED: MAG HYDROX/AL HYDROX/SIMETH 30 ML UDC PO PRN (23:30)
[2017-03-15] MEDS ORDERED: ACETAMINOPHEN 325 MG TABLET PO PRN (23:30)
[2017-03-15] MEDS ORDERED: HYDROCODONE/APAP 5/325MG 1 EACH TABLET PO PRN (23:30)
[2017-03-15] MEDS ORDERED: MAGNESIUM HYDROXIDE 30 ML UDC PO PRN (23:30)
[2017-03-15] MEDS ORDERED: Z GUARD REMEDY 2 OZ OINT TP PRN (23:30)
[2017-03-15] MEDS ORDERED: ZOLPIDEM TARTRATE 5 MG TABLET PO PRN (23:30)
[2017-03-15] MEDS ORDERED: ONDANSETRON HCL/PF 4 MG/2 ML VIAL IVP PRN (23:30)
[2017-03-16] VITALS (7 sets, daily range): BP systolic 92–127; BP diastolic 43–67
[2017-03-16] MEDS ORDERED: DEXTROSE 50%-WATER 50 ML DISP.SYRIN IV PRN
[2017-03-16 01:02] LABS: CALCIUM, SERUM 8.5 mg/dL (8.5-10.1); CREATININE 4.5 mg/dL (0.6-1.3); POTASSIUM 5.3 mmol/L (3.5-5.1)
[2017-03-16] MEDS: INSULIN REGULAR, HUMAN 100 UNIT/ML 3 ML VIAL SQ PRN (06:48)
[2017-03-16] MEDS: BLOOD SUGAR DIAGNOSTIC 1 EACH STRIP VI SCH ×4 (06:48→21:27)
[2017-03-16 07:15] LABS: BASOPHILS % (AUTO) 0.2 % (0.0-2.0); EOSINOPHILS % (AUTO) 0.2 % (0.0-6.0); HEMATOCRIT 26 % (39-51); HEMOGLOBIN 8.6 g/dL (13.5-17.5); LYMPHOCYTES # (AUTO) 0.9 /CMM (0.8-4.8); LYMPHOCYTES % (AUTO) 12.2 % (20.0-44.0); MEAN CORPUSCULAR HEMOGLOBIN 31 PG (26.0-33.0); MEAN CORPUSCULAR HGB CONC 33 g/dl (31.0-36.0); MEAN CORPUSCULAR VOLUME 92 fL (80-96); MONOCYTES # (AUTO) 1.7 /CMM (0.1-1.30); MONOCYTES % (AUTO) 22.9 % (2.0-12.0); NEUTROPHILS # (AUTO) 4.7 /CMM (1.8-8.9); NEUTROPHILS % (AUTO) 64.5 % (43.0-81.0); PLATELET COUNT (AUTO) 60 /CMM (150-450); RDW COEFFICIENT OF VARIATION 20.3 (11.5-15.0); RED BLOOD CELL COUNT(AUTO) 2.81 MIL/uL (4.5-6.0); WHITE BLOOD COUNT (AUTO) 7.3 K/uL (4.3-11.0)
[2017-03-16 07:33] LABS: CALCIUM, SERUM 8.2 mg/dL (8.5-10.1); CREATININE 4.6 mg/dL (0.6-1.3); MAGNESIUM 2.1 mg/dL (1.8-2.4); PHOSPHORUS 4.3 mg/dL (2.5-4.9); POTASSIUM 5.4 mmol/L (3.5-5.1)
[2017-03-16 07:44] LABS: LYMPHOCYTES % (MANUAL) 20 % (16-48); MONOCYTES % (MANUAL) 16 % (0-11.0); NEUTROPHILS % (MANUAL) 64 (42-76)
[2017-03-16] MEDS: AMIODARONE HCL 200 MG TABLET PO SCH (09:00)
[2017-03-16] MEDS: FLUTICASONE/SALMETEROL DISKUS IH SCH ×2 (09:00→17:00)
[2017-03-16] MEDS ORDERED: HYDROCORTISONE 20 MG TABLET PO SCH (09:00)
[2017-03-16] MEDS: METOPROLOL TARTRATE 25 MG TABLET PO SCH ×2 (09:00→18:06)
[2017-03-16] MEDS ORDERED: TOLTERODINE TARTRATE 4 MG PO SCH (09:00)
[2017-03-16] MEDS ORDERED: FEBUXOSTAT PO SCH (09:00)
[2017-03-16] MEDS ORDERED: COLCHICINE 0.6 MG TABLET PO PRN (09:00)
[2017-03-16] MEDS ORDERED: TIOTROPIUM BROMIDE 6 CAP/BOX CAP.W.DEV IH SCH (09:00)
[2017-03-16] MEDS: PANTOPRAZOLE 40 MG TABLET.DR PO SCH (09:03)
[2017-03-16] MEDS: DUTASTERIDE (0.5 MG) 0.5 MG CAPSULE PO SCH ×2 (09:03→09:26)
[2017-03-16] MEDS: PAROXETINE HCL 20 MG TABLET PO SCH (09:03)
[2017-03-16] MEDS: DOCUSATE SODIUM 250 MG CAPSULE PO SCH (09:04)
[2017-03-16] MEDS: LORATADINE 10 MG TABLET PO SCH (09:04)
[2017-03-16] MEDS: MIDODRINE HCL (5MG) 5 MG TABLET PO SCH (09:05)
[2017-03-16] MEDS: TAMSULOSIN 0.4 MG CAP.SR.24H PO SCH (09:26)
[2017-03-16] MEDS: HEPARIN SODIUM, PORCINE 5000 UNITS/1 ML VIAL SQ SCH ×2 (09:29→21:17)
[2017-03-16] MEDS: LISINOPRIL (5MG) 5 MG TABLET PO SCH (09:30)
[2017-03-16] MEDS ORDERED: EPOETIN ALFA (10,000 UNIT) 10,000 UNIT/ML VIAL IV ONE (12:30)
[2017-03-16] MEDS: IPRATROPIUM NEB FS 0.5 MG/2.5 ML AMPUL.NEB NEB SCH ×2 (13:03→20:04)
[2017-03-16] MEDS: NAMENDA 28 MG PO SCH (15:23)
[2017-03-16] MEDS: TOLTERODINE 2 MG CAP.SR PO SCH (15:23)
[2017-03-16] MEDS: CRESTOR 40 MG PO SCH (15:23)
[2017-03-16] MEDS: DIGOXIN 0.125 MG TABLET PO SCH (15:24)
[2017-03-16] MEDS: LATANOPROST EYE DROP 0.005% 2.5 ML BOTTLE EACHEYE SCH (21:10)
[2017-03-16] MEDS: VASCEPA PO SCH (21:13)
[2017-03-17] VITALS: BP 100/46
[2017-03-17] MEDS: IPRATROPIUM NEB FS 0.5 MG/2.5 ML AMPUL.NEB NEB SCH ×4 (00:50→20:28)
[2017-03-17 04:00] VITALS: BP 106/53
[2017-03-17] MEDS: PANTOPRAZOLE 40 MG TABLET.DR PO SCH (06:13)
[2017-03-17] MEDS: BLOOD SUGAR DIAGNOSTIC 1 EACH STRIP VI SCH ×4 (06:14→22:01)
[2017-03-17 08:00] VITALS: BP 109/55
[2017-03-17 08:07] LABS: BASOPHILS % (AUTO) 0.2 % (0.0-2.0); EOSINOPHILS % (AUTO) 0.2 % (0.0-6.0); HEMATOCRIT 24 % (39-51); HEMOGLOBIN 8.1 g/dL (13.5-17.5); LYMPHOCYTES # (AUTO) 0.8 /CMM (0.8-4.8); LYMPHOCYTES % (AUTO) 14.9 % (20.0-44.0); MEAN CORPUSCULAR HEMOGLOBIN 31 PG (26.0-33.0); MEAN CORPUSCULAR HGB CONC 34 g/dl (31.0-36.0); MEAN CORPUSCULAR VOLUME 91 fL (80-96); MONOCYTES # (AUTO) 1.4 /CMM (0.1-1.30); MONOCYTES % (AUTO) 26.5 % (2.0-12.0); NEUTROPHILS # (AUTO) 3.1 /CMM (1.8-8.9); NEUTROPHILS % (AUTO) 58.2 % (43.0-81.0); PLATELET COUNT (AUTO) 51 /CMM (150-450); RDW COEFFICIENT OF VARIATION 20.8 (11.5-15.0); RED BLOOD CELL COUNT(AUTO) 2.59 MIL/uL (4.5-6.0); WHITE BLOOD COUNT (AUTO) 5.3 K/uL (4.3-11.0)
[2017-03-17 08:22] LABS: CALCIUM, SERUM 8.1 mg/dL (8.5-10.1); CREATININE 3.8 mg/dL (0.6-1.3); POTASSIUM 4.3 mmol/L (3.5-5.1)
[2017-03-17] MEDS: TAMSULOSIN 0.4 MG CAP.SR.24H PO SCH (08:35)
[2017-03-17] MEDS: HEPARIN SODIUM, PORCINE 5000 UNITS/1 ML VIAL SQ SCH ×2 (08:37→21:00)
[2017-03-17] MEDS: MIDODRINE HCL (5MG) 5 MG TABLET PO SCH (08:37)
[2017-03-17] MEDS: ASPIRIN 81 MG TAB.CHEW PO SCH (08:37)
[2017-03-17] MEDS: LISINOPRIL (5MG) 5 MG TABLET PO SCH (08:38)
[2017-03-17] MEDS: AMIODARONE HCL 200 MG TABLET PO SCH (08:38)
[2017-03-17] MEDS: METOPROLOL TARTRATE 25 MG TABLET PO SCH ×2 (08:39→17:00)
[2017-03-17] MEDS: PAROXETINE HCL 20 MG TABLET PO SCH (08:39)
[2017-03-17] MEDS: LORATADINE 10 MG TABLET PO SCH (08:39)
[2017-03-17] MEDS: TOLTERODINE 2 MG CAP.SR PO SCH (08:40)
[2017-03-17] MEDS: DUTASTERIDE (0.5 MG) 0.5 MG CAPSULE PO SCH (08:40)
[2017-03-17] MEDS: DOCUSATE SODIUM 250 MG CAPSULE PO SCH (08:40)
[2017-03-17] MEDS: NAMENDA 28 MG PO SCH (08:42)
[2017-03-17] MEDS: VASCEPA PO SCH ×4 (08:42→22:01)
[2017-03-17] MEDS: CRESTOR 40 MG PO SCH (08:43)
[2017-03-17 08:46] LABS: LYMPHOCYTES % (MANUAL) 14 % (16-48); MONOCYTES % (MANUAL) 19 % (0-11.0); MYELOCYTES % 1 % (0-0); NEUTROPHILS % (MANUAL) 66 (42-76)
[2017-03-17] MEDS: FLUTICASONE/SALMETEROL DISKUS IH SCH ×2 (08:46→17:31)
[2017-03-17] MEDS: HYDROCORTISONE 5 MG TABLET PO SCH (08:53)
[2017-03-17 16:00] VITALS: BP 112/55
[2017-03-17] MEDS: INSULIN REGULAR, HUMAN 100 UNIT/ML 3 ML VIAL SQ PRN (17:30)
[2017-03-17 20:00] VITALS: BP 103/56
[2017-03-17] MEDS: LATANOPROST EYE DROP 0.005% 2.5 ML BOTTLE EACHEYE SCH (22:01)
[2017-03-18] MEDS: IPRATROPIUM NEB FS 0.5 MG/2.5 ML AMPUL.NEB NEB SCH ×4 (01:22→19:54)
[2017-03-18 04:00] VITALS: BP 103/60
[2017-03-18] MEDS: BLOOD SUGAR DIAGNOSTIC 1 EACH STRIP VI SCH ×4 (06:34→22:04)
[2017-03-18] MEDS: HYDROCORTISONE 5 MG TABLET PO SCH (08:43)
[2017-03-18] MEDS: MIDODRINE HCL (5MG) 5 MG TABLET PO SCH (08:47)
[2017-03-18] MEDS: DUTASTERIDE (0.5 MG) 0.5 MG CAPSULE PO SCH (08:47)
[2017-03-18] MEDS: TAMSULOSIN 0.4 MG CAP.SR.24H PO SCH (08:48)
[2017-03-18] MEDS: AMIODARONE HCL 200 MG TABLET PO SCH (08:49)
[2017-03-18] MEDS: DOCUSATE SODIUM 250 MG CAPSULE PO SCH (08:49)
[2017-03-18] MEDS: LISINOPRIL (5MG) 5 MG TABLET PO SCH (08:49)
[2017-03-18] MEDS: TOLTERODINE 2 MG CAP.SR PO SCH (08:50)
[2017-03-18] MEDS: METOPROLOL TARTRATE 25 MG TABLET PO SCH ×2 (08:50→17:00)
[2017-03-18] MEDS: LORATADINE 10 MG TABLET PO SCH (08:51)
[2017-03-18] MEDS: PANTOPRAZOLE 40 MG TABLET.DR PO SCH (08:51)
[2017-03-18] MEDS: PAROXETINE HCL 20 MG TABLET PO SCH (08:51)
[2017-03-18] MEDS: HEPARIN SODIUM, PORCINE 5000 UNITS/1 ML VIAL SQ SCH ×2 (08:52→21:57)
[2017-03-18] MEDS: CRESTOR 40 MG PO SCH (08:54)
[2017-03-18] MEDS: VASCEPA PO SCH ×4 (08:54→21:54)
[2017-03-18] MEDS: NAMENDA 28 MG PO SCH (08:54)
[2017-03-18] MEDS: FLUTICASONE/SALMETEROL DISKUS IH SCH ×2 (08:54→18:21)
[2017-03-18 12:00] VITALS: BP 154/83
[2017-03-18] MEDS ORDERED: IV SET PRIMARY PUMP SET 1 EA INFUS.SET MC ONE (12:28)
[2017-03-18] MEDS: DIGOXIN 0.125 MG TABLET PO SCH (12:35)
[2017-03-18] MEDS: INSULIN REGULAR, HUMAN 100 UNIT/ML 3 ML VIAL SQ PRN (18:20)
[2017-03-18 20:00] VITALS: BP 97/52
[2017-03-18] MEDS: LATANOPROST EYE DROP 0.005% 2.5 ML BOTTLE EACHEYE SCH (21:56)
[2017-03-19] VITALS (9 sets, daily range): BP systolic 89–131; BP diastolic 50–70
[2017-03-19] MEDS: IPRATROPIUM NEB FS 0.5 MG/2.5 ML AMPUL.NEB NEB SCH ×5 (00:57→19:40)
[2017-03-19] MEDS: BLOOD SUGAR DIAGNOSTIC 1 EACH STRIP VI SCH ×4 (07:30→22:26)
[2017-03-19] MEDS: TAMSULOSIN 0.4 MG CAP.SR.24H PO SCH (08:23)
[2017-03-19] MEDS: ASPIRIN 81 MG TAB.CHEW PO SCH (08:23)
[2017-03-19] MEDS: LORATADINE 10 MG TABLET PO SCH (08:23)
[2017-03-19] MEDS: DUTASTERIDE (0.5 MG) 0.5 MG CAPSULE PO SCH (08:23)
[2017-03-19] MEDS: PANTOPRAZOLE 40 MG TABLET.DR PO SCH (08:24)
[2017-03-19] MEDS: MIDODRINE HCL (5MG) 5 MG TABLET PO SCH (08:24)
[2017-03-19] MEDS: PAROXETINE HCL 20 MG TABLET PO SCH (08:49)
[2017-03-19] MEDS: VASCEPA PO SCH ×4 (08:51→22:28)
[2017-03-19] MEDS: CRESTOR 40 MG PO SCH (08:51)
[2017-03-19] MEDS: TOLTERODINE 2 MG CAP.SR PO SCH (08:53)
[2017-03-19] MEDS: NAMENDA 28 MG PO SCH (08:53)
[2017-03-19] MEDS: AMIODARONE HCL 200 MG TABLET PO SCH (08:54)
[2017-03-19] MEDS: FLUTICASONE/SALMETEROL DISKUS IH SCH ×2 (08:54→17:24)
[2017-03-19] MEDS: DOCUSATE SODIUM 250 MG CAPSULE PO SCH (09:00)
[2017-03-19] MEDS: LISINOPRIL (5MG) 5 MG TABLET PO SCH (09:19)
[2017-03-19] MEDS: METOPROLOL TARTRATE 25 MG TABLET PO SCH ×2 (09:20→17:24)
[2017-03-19] MEDS: HEPARIN SODIUM, PORCINE 5000 UNITS/1 ML VIAL SQ SCH ×2 (09:22→23:29)
[2017-03-19] MEDS: HYDROCORTISONE 5 MG TABLET PO SCH (09:31)
[2017-03-19] MEDS: INSULIN REGULAR, HUMAN 100 UNIT/ML 3 ML VIAL SQ PRN ×2 (11:59→17:29)
[2017-03-19] MEDS: *INSULIN REGULAR(HUMULIN R)HUM 100 UNIT/ML VIAL SQ PRN (22:26)
[2017-03-19] MEDS: LATANOPROST EYE DROP 0.005% 2.5 ML BOTTLE EACHEYE SCH (22:28)
[2017-03-20] MEDS: IPRATROPIUM NEB FS 0.5 MG/2.5 ML AMPUL.NEB NEB SCH ×5 (01:38→19:58)
[2017-03-20 04:00] VITALS: BP 98/57
[2017-03-20 04:30] VITALS: BP 113/53
[2017-03-20] MEDS: BLOOD SUGAR DIAGNOSTIC 1 EACH STRIP VI SCH ×4 (06:23→21:47)
[2017-03-20] MEDS: INSULIN REGULAR, HUMAN 100 UNIT/ML 3 ML VIAL SQ PRN ×3 (06:23→17:18)
[2017-03-20 06:38] VITALS: BP 119/68
[2017-03-20 06:59] LABS: BASOPHILS % (AUTO) 0.1 % (0.0-2.0); HEMATOCRIT 23 % (39-51); HEMOGLOBIN 7.7 g/dL (13.5-17.5); LYMPHOCYTES # (AUTO) 0.5 /CMM (0.8-4.8); MEAN CORPUSCULAR HEMOGLOBIN 31 PG (26.0-33.0); MEAN CORPUSCULAR HGB CONC 33 g/dl (31.0-36.0); MEAN CORPUSCULAR VOLUME 94 fL (80-96); MONOCYTES % (AUTO) 17.9 % (2.0-12.0); NEUTROPHILS # (AUTO) 4.3 /CMM (1.8-8.9); RDW COEFFICIENT OF VARIATION 22.1 (11.5-15.0); RED BLOOD CELL COUNT(AUTO) 2.47 MIL/uL (4.5-6.0); WHITE BLOOD COUNT (AUTO) 5.8 K/uL (4.3-11.0)
[2017-03-20 07:08] LABS: CALCIUM, SERUM 7.9 mg/dL (8.5-10.1); POTASSIUM 3.8 mmol/L (3.5-5.1)
[2017-03-20] MEDS ORDERED: RISEDRONATE SODIUM 35 MG TABLET PO SCH (07:30)
[2017-03-20 07:39] LABS: PLATELET COUNT (AUTO) 47 /CMM (150-450)
[2017-03-20 08:00] VITALS: BP 103/54
[2017-03-20] MEDS: PANTOPRAZOLE 40 MG TABLET.DR PO SCH (08:28)
[2017-03-20] MEDS: DOCUSATE SODIUM 250 MG CAPSULE PO SCH (08:29)
[2017-03-20] MEDS: MIDODRINE HCL (5MG) 5 MG TABLET PO SCH (08:29)
[2017-03-20] MEDS: HYDROCORTISONE 5 MG TABLET PO SCH (08:29)
[2017-03-20] MEDS: TAMSULOSIN 0.4 MG CAP.SR.24H PO SCH (08:42)
[2017-03-20] MEDS: PAROXETINE HCL 20 MG TABLET PO SCH (08:42)
[2017-03-20] MEDS: DUTASTERIDE (0.5 MG) 0.5 MG CAPSULE PO SCH (08:42)
[2017-03-20] MEDS: TOLTERODINE 2 MG CAP.SR PO SCH (08:42)
[2017-03-20] MEDS: LORATADINE 10 MG TABLET PO SCH (08:42)
[2017-03-20] MEDS: METOPROLOL TARTRATE 25 MG TABLET PO SCH ×2 (08:43→16:37)
[2017-03-20] MEDS: HEPARIN SODIUM, PORCINE 5000 UNITS/1 ML VIAL SQ SCH (08:43)
[2017-03-20] MEDS: LISINOPRIL (5MG) 5 MG TABLET PO SCH (08:43)
[2017-03-20] MEDS: AMIODARONE HCL 200 MG TABLET PO SCH (08:44)
[2017-03-20] MEDS: VASCEPA PO SCH ×4 (08:49→20:16)
[2017-03-20] MEDS: CRESTOR 40 MG PO SCH (08:49)
[2017-03-20] MEDS: NAMENDA 28 MG PO SCH (08:49)
[2017-03-20] MEDS: FLUTICASONE/SALMETEROL DISKUS IH SCH ×2 (08:50→16:36)
[2017-03-20 10:10] LABS: BAND % (MANUAL) 1 % (0.0-5.0); LYMPHOCYTES % (MANUAL) 10 % (16-48); MONOCYTES % (MANUAL) 12 % (0-11.0); NEUTROPHILS % (MANUAL) 77 (42-76)
[2017-03-20 12:44] LABS: HEMOGLOBIN 7.5 g/dL (13.5-17.5)
[2017-03-20] MEDS: DIGOXIN 0.125 MG TABLET PO SCH (13:23)
[2017-03-20 16:00] VITALS: BP_SYST 119; BP_DIAS 64; BP_DIAS 69
[2017-03-20 20:00] VITALS: BP 103/54
[2017-03-20] MEDS: LATANOPROST EYE DROP 0.005% 2.5 ML BOTTLE EACHEYE SCH (21:40)
[2017-03-20] MEDS: *INSULIN REGULAR(HUMULIN R)HUM 100 UNIT/ML VIAL SQ PRN (21:48)
[2017-03-21] MEDS: IPRATROPIUM NEB FS 0.5 MG/2.5 ML AMPUL.NEB NEB SCH ×3 (01:25→12:55)
[2017-03-21 07:04] LABS: BASOPHILS % (AUTO) 0.2 % (0.0-2.0); HEMATOCRIT 22 % (39-51); HEMOGLOBIN 7.4 g/dL (13.5-17.5); LYMPHOCYTES # (AUTO) 0.8 /CMM (0.8-4.8); MEAN CORPUSCULAR HEMOGLOBIN 32 PG (26.0-33.0); MEAN CORPUSCULAR HGB CONC 34 g/dl (31.0-36.0); MEAN CORPUSCULAR VOLUME 95 fL (80-96); MONOCYTES # (AUTO) 1.2 /CMM (0.1-1.30); MONOCYTES % (AUTO) 20.5 % (2.0-12.0); NEUTROPHILS # (AUTO) 3.9 /CMM (1.8-8.9); NEUTROPHILS % (AUTO) 65.3 % (43.0-81.0); RDW COEFFICIENT OF VARIATION 22.4 (11.5-15.0); RED BLOOD CELL COUNT(AUTO) 2.35 MIL/uL (4.5-6.0); WHITE BLOOD COUNT (AUTO) 5.9 K/uL (4.3-11.0)
[2017-03-21 07:08] LABS: CALCIUM, SERUM 8.1 mg/dL (8.5-10.1); CREATININE 4.4 mg/dL (0.6-1.3)
[2017-03-21 07:59] LABS: PLATELET COUNT (AUTO) 46 /CMM (150-450)
[2017-03-21 08:00] VITALS: BP 107/63
[2017-03-21] MEDS: BLOOD SUGAR DIAGNOSTIC 1 EACH STRIP VI SCH ×3 (08:10→16:50)
[2017-03-21 08:31] LABS: NEUTROPHILS % (MANUAL) 64 (42-76)
[2017-03-21 08:32] LABS: EOSINOPHILS % (MANUAL) 1 % (0-4); LYMPHOCYTES % (MANUAL) 19 % (16-48); MONOCYTES % (MANUAL) 16 % (0-11.0)
[2017-03-21] MEDS: PAROXETINE HCL 20 MG TABLET PO SCH (08:39)
[2017-03-21] MEDS: NAMENDA 28 MG PO SCH (08:39)
[2017-03-21] MEDS: DOCUSATE SODIUM 250 MG CAPSULE PO SCH (08:39)
[2017-03-21] MEDS: TAMSULOSIN 0.4 MG CAP.SR.24H PO SCH (08:39)
[2017-03-21] MEDS: MIDODRINE HCL (5MG) 5 MG TABLET PO SCH (08:40)
[2017-03-21] MEDS: HYDROCORTISONE 5 MG TABLET PO SCH (08:41)
[2017-03-21] MEDS: TOLTERODINE 2 MG CAP.SR PO SCH (08:41)
[2017-03-21] MEDS: DUTASTERIDE (0.5 MG) 0.5 MG CAPSULE PO SCH (08:41)
[2017-03-21] MEDS: AMIODARONE HCL 200 MG TABLET PO SCH (08:41)
[2017-03-21] MEDS: CRESTOR 40 MG PO SCH (08:42)
[2017-03-21] MEDS: VASCEPA PO SCH ×3 (08:42→18:08)
[2017-03-21] MEDS: METOPROLOL TARTRATE 25 MG TABLET PO SCH ×2 (08:43→16:51)
[2017-03-21] MEDS: LISINOPRIL (5MG) 5 MG TABLET PO SCH (08:43)
[2017-03-21] MEDS: FLUTICASONE/SALMETEROL DISKUS IH SCH ×2 (08:43→16:51)
[2017-03-21] MEDS ORDERED: EPOETIN ALFA (10,000 UNIT) 10,000 UNIT/ML VIAL IV ONE (13:00)
[2017-03-21 16:00] VITALS: BP 96/45
[2017-03-21 16:51] VITALS: BP 96/55
[2017-03-21] MEDS: INSULIN REGULAR, HUMAN 100 UNIT/ML 3 ML VIAL SQ PRN (16:54)
[2017-03-23] MEDS ORDERED: ERGOCALCIFEROL (VITAMIN D 2) 50,000 UNIT CAPSULE PO SCH (09:00)
== END 2017-03-21 18:58 | disposition home or self-care (01) | DRG 280 ==
LOC: ER 19:25 → TELE1 22:08 → MEDSG1 03-17 10:02 → MEDSG2 03-19 06:18
PROVIDERS: ADMIT Nurse Practitioner Acute Care; ATTEND Nurse Practitioner Acute Care
PROC: 5A1D60Z (ICD-10-PCS; principal; 2017-03-16)
DX: I13.2 Hypertensive heart and chronic kidney disease with heart failure and with stage 5 chronic kidney disease, or end stage renal disease (principal); N18.6 End stage renal disease; I21.4 Non-ST elevation (NSTEMI) myocardial infarction; I50.23 Acute on chronic systolic (congestive) heart failure; E44.0 Moderate protein-calorie malnutrition; Z99.2 Dependence on renal dialysis; E78.5 Hyperlipidemia, unspecified; E87.5 Hyperkalemia; I25.10 Atherosclerotic heart disease of native coronary artery without angina pectoris; Z86.73 Personal history of transient ischemic attack (TIA), and cerebral infarction without residual deficits; E11.22 Type 2 diabetes mellitus with diabetic chronic kidney disease; E11.65 Type 2 diabetes mellitus with hyperglycemia; D63.8 Anemia in other chronic diseases classified elsewhere; E66.9 Obesity, unspecified; Z68.30 Body mass index [BMI] 30.0-30.9, adult; F03.90 Unspecified dementia, unspecified severity, without behavioral disturbance, psychotic disturbance, mood disturbance, and anxiety; K21.9 Gastro-esophageal reflux disease without esophagitis; Z95.0 Presence of cardiac pacemaker; D69.6 Thrombocytopenia, unspecified; R04.0 Epistaxis; I48.91 Unspecified atrial fibrillation
CPT/HCPCS: 36415; 71010-TC; 80048-TC; 80061-TC; 82962-TC; 83735-TC; 84100-TC; 85025-TC; 85027-TC; 85730-TC; 87081-TC; 90935-TC; 94799-TC; 97001-TC; 97110-TC; 97116-TC; 97530-TC; A4216; A4606; A4623; A6403; J0885; J1644; J1815; J3490; Z7610

== ENCOUNTER 2017-05-13 11:37 | Inpatient (IN) | payer MEDICARE, OTHER ==
[~2017-05-13] VITALS: Ht 172.7 cm; Wt 79.5 kg
[2017-05-13] VITALS (24 sets, daily range): BP systolic 66–101; BP diastolic 32–56
--- NOTE | 2017-05-13 11:48 | NUR ---
PATIENT BIB RA D/T LOW BLOOD PRESSURE FROM HD CENTER. PATIENT IS A/OX 3. BREATHING EVEN AND UNLABORED, BUT VERY WEAK. PALE IN COLOR. BLOOD PRESSURE 72/32, PULSE 60. SAFETY AND COMFORT MEASURES IN PLACE. MD AT BEDSIDE.
--- NOTE | 2017-05-13 11:50 | NUR ---
NEW IV STARTED LAC, 18 G. BLOOD DRAWN AND SENT TO LAB.
--- NOTE | 2017-05-13 11:54 | NUR ---
ATTEMPTED TO PAGE DR AIKEN, NO RESPONSE ON HIS LINE
--- NOTE | 2017-05-13 11:55 | NUR ---
NEW IV STARTED RIGHT AC, 18 G
--- NOTE | 2017-05-13 11:59 | NUR ---
PAGED SLEEP TECHNICIAN FIRE SPRINKLER INSPECTOR DR VARGAS FOR STAT CONSULT
[2017-05-13] MEDS ORDERED: IV NS 0.9% 500 ML BAG IV ONE ×2 (12:00→14:00)
--- NOTE | 2017-05-13 12:00 | NUR ---
RADIOSONDE SPECIALIST AT BEDSIDE
[2017-05-13 12:02] LABS: BASOPHILS # (AUTO) 0.1 /CMM (0.0-0.2); BASOPHILS % (AUTO) 4.1 % (0.0-2.0); EOSINOPHILS % (AUTO) 1.5 % (0.0-6.0); HEMATOCRIT 22 % (39-51); HEMOGLOBIN 7.1 g/dL (13.5-17.5); LYMPHOCYTES # (AUTO) 1.3 /CMM (0.8-4.8); LYMPHOCYTES % (AUTO) 52.3 % (20.0-44.0); MEAN CORPUSCULAR HEMOGLOBIN 33 PG (26.0-33.0); MEAN CORPUSCULAR HGB CONC 33 g/dl (31.0-36.0); MEAN CORPUSCULAR VOLUME 100 fL (80-96); MONOCYTES # (AUTO) 0.2 /CMM (0.1-1.30); MONOCYTES % (AUTO) 10.4 % (2.0-12.0); NEUTROPHILS # (AUTO) 0.7 /CMM (1.8-8.9); NEUTROPHILS % (AUTO) 31.7 % (43.0-81.0); RDW COEFFICIENT OF VARIATION 20.4 (11.5-15.0); RED BLOOD CELL COUNT(AUTO) 2.17 MIL/uL (4.5-6.0); WHITE BLOOD COUNT (AUTO) 2.3 K/uL (4.3-11.0)
--- NOTE | 2017-05-13 12:10 | NUR ---
SPOKE TO NURSING SETTER AUTOMATIC SPINNING LATHE REGARDING BED ASSIGNMENT
[2017-05-13 12:12] LABS: PLATELET COUNT (AUTO) 45 /CMM (150-450)
[2017-05-13 12:19] LABS: INR 1.24 (0.87-1.13)
--- NOTE | 2017-05-13 12:25 | NUR ---
CALLED NURSING BRUSH POLISHER FOR PICC LINE
[2017-05-13 12:27] LABS: ALANINE AMINOTRANSFERASE 17 U/L (12-78); ALBUMIN 2.6 g/dL (3.4-5.0); ALKALINE PHOSPHATASE 106 U/L (46-116); ASPARTATE AMINOTRANSFERASE 36 U/L (15-37); BILIRUBIN,DIRECT 0.4 mg/dL (0.0-0.2); BILIRUBIN,TOTAL 0.9 mg/dL (0.2-1.0); CALCIUM, SERUM 7.9 mg/dL (8.5-10.1); CARBON DIOXIDE 27 mmol/L (21-32); CHLORIDE 105 mmol/L (98-107); CREATININE 2.1 mg/dL (0.6-1.3); GLUCOSE 102 mg/dL (74-106); LIPASE 154 U/L (73-393); POTASSIUM 3.5 mmol/L (3.5-5.1); SODIUM SERUM 138 mmol/L (136-145); TOTAL PROTEIN, SERUM 7.1 g/dL (6.4-8.2)
--- NOTE | 2017-05-13 12:33 | NUR ---
BLOOD TRANSFUSION CONSENT RECEIVED FROM PATIENT'S , GIRISH. PATIENT/ UNDERSTAND PROCEDURE. TO ORDER BLOOD.
[2017-05-13 12:34] LABS: BAND % (MANUAL) 1 % (0.0-5.0); LYMPHOCYTES % (MANUAL) 52 % (16-48); MONOCYTES % (MANUAL) 7 % (0-11.0); NEUTROPHILS % (MANUAL) 40 (42-76)
[2017-05-13 12:37] LABS: THYROID STIMULATING HORMONE 1.097 uIU/mL (0.358-3.74)
[2017-05-13 12:43] LABS: UREA NITROGEN, BLOOD 11 mg/dL (7-18)
[2017-05-13 12:49] LABS: DIGOXIN 1.85 ng/mL (0.90-2.00)
--- NOTE | 2017-05-13 12:57 | NUR ---
US TECH AT BEDSIDE FOR ECHO
--- NOTE | 2017-05-13 13:00 | NUR ---
ICU 264
[2017-05-13] MEDS ORDERED: VANCOMYCIN 0.75 GM in IV D5W 250 ML IV ONE (13:30)
[2017-05-13] MEDS ORDERED: MEROPENEM 1 G in IV NS 0.9% 100 ML IV ONE (13:30)
[2017-05-13 13:54] LABS: TROPONIN I 0.129 ng/mL (0.00-0.056)
--- NOTE | 2017-05-13 14:09 | NUR ---
REPORT GIVEN TO BI OSPINA, FOR ERICK.
--- NOTE | 2017-05-13 14:20 | NUR ---
PAGED PHILLY DANIEL DNP FOR ADMISSION
--- NOTE | 2017-05-13 14:40 | NUR ---
PATIENT TRANSPORTED TO ICU 264 VIA STRETCHER FOR ADMISSION WITH EMT AND RN.
--- NOTE | 2017-05-13 15:00 | NUR ---
ICU/RN PT ADMITTED FROM ER. AWAKE ,ALERT,[id number].BP-STABLE,AFEBRILE.NO PAIN REPORTED AT THIS TIME.LEFT CHEST PACEMAKER.HR-60 V-PACING. IV-HL.ANURIC.ESRD ON HD.HD CATH ON THE LEFT SUBCLAVIAN AREA.PT CAME FROM HD CENTER WITH LOW BP.1500 ML BOLUS NS WAS GIVEN ER.LABS REVIEW.H/H-7.1/22. 1 UNIT PRBC ORDERED.REDNESS ON THE LOWER BACK NOTED.MULTIPLY WOUND ,SKIN TEARS AND NOTED ALL OVER THE BODY.PT IS ON RA.SAT O2-99%.FAMILY AT BEDSIDE.
[2017-05-13 15:11] LABS: PARTIAL THROMBOPLASTIN TIME > 170 SEC (23-34)
[2017-05-13] MEDS ORDERED: CARV3.122 PO (15:39)
[2017-05-13] MEDS ORDERED: AMLO5TAB2 PO (15:39)
[2017-05-13] MEDS ORDERED: HYDR10SY7 PO (15:39)
[2017-05-13] MEDS ORDERED: ALLO100T PO (15:39)
[2017-05-13] MEDS ORDERED: ONDA4TAB8 SL (15:39)
[2017-05-13] MEDS ORDERED: OLME1TAB3 PO (15:43)
[2017-05-13] MEDS ORDERED: DEXA1TAB2 PO (15:43)
[2017-05-13] MEDS ORDERED: LENA5CAP PO (15:43)
[2017-05-13] MEDS ORDERED: ONDANSETRON HCL/PF 4 MG/2 ML VIAL IVP PRN (18:00)
--- NOTE | 2017-05-13 18:54 | NUR ---
ICU/RN 1 UNIT PRBC GIVEN ORDERED.NO COMPLICATIONS NOTED.V/S STABLE.T-99.1.CONTINUE MONITORING.
[2017-05-13] MEDS ORDERED: INSULIN REGULAR, HUMAN 100 UNIT/ML 3 ML VIAL SQ PRN (19:30)
[2017-05-13] MEDS ORDERED: DEXTROSE 50%-WATER 50 ML DISP.SYRIN IV PRN (19:30)
--- NOTE | 2017-05-13 20:00 | NUR ---
Received patient awake alert and oriented x 3.Follows commands.Moves all extremities. Denies pain.V-paced 60 with left chest wall PPM.Respiration even and unlabored.On RA saturation 96%.Anuric with right subclavian HD cath in place.HOB elevated.Patient being fed by with good appetite.With multiple skin issues.Will turn and reposition Q 2 hrs. per protocol.
[2017-05-13] MEDS: LATANOPROST EYE DROP 0.005% 2.5 ML BOTTLE EACHEYE SCH (21:27)
[2017-05-13] MEDS: Z GUARD REMEDY 2 OZ OINT TP SCH (21:27)
[2017-05-13] MEDS: ONDANSETRON 4 MG TAB.RAPDIS SL SCH (21:27)
[2017-05-13] MEDS ORDERED: INSULIN REGULAR, HUMAN 100 UNIT/ML 10 ML VIAL ONE (21:32)
[2017-05-13] MEDS: BLOOD SUGAR DIAGNOSTIC 1 EACH STRIP IN SCH (21:45)
[2017-05-13] MEDS ORDERED: IV NS 0.9% 1,000 ML BAG IV ONE (22:00)
[2017-05-13] MEDS ORDERED: ATORVASTATIN 40 MG TABLET PO SCH (22:00)
--- NOTE | 2017-05-13 22:10 | NUR ---
Patient hemodynamically unstable.BP 86/40,66/32 to 89/43 called to with orders received and carried out.
[2017-05-13] MEDS ORDERED: NOREPINEPHRINE 8 MG in IV D5W 500 ML IV PRN (22:30)
[2017-05-14] VITALS (42 sets, daily range): BP systolic 77–123; BP diastolic 38–56
[2017-05-14 04:37] LABS: BASOPHILS % (AUTO) 0.7 % (0.0-2.0); HEMATOCRIT 26 % (39-51); HEMOGLOBIN 8.4 g/dL (13.5-17.5); LYMPHOCYTES # (AUTO) 1.6 /CMM (0.8-4.8); LYMPHOCYTES % (AUTO) 48.5 % (20.0-44.0); MEAN CORPUSCULAR HEMOGLOBIN 33 PG (26.0-33.0); MEAN CORPUSCULAR HGB CONC 33 g/dl (31.0-36.0); MEAN CORPUSCULAR VOLUME 100 fL (80-96); MONOCYTES # (AUTO) 0.4 /CMM (0.1-1.30); MONOCYTES % (AUTO) 13.6 % (2.0-12.0); NEUTROPHILS # (AUTO) 1.2 /CMM (1.8-8.9); NEUTROPHILS % (AUTO) 36.2 % (43.0-81.0); RDW COEFFICIENT OF VARIATION 22.6 (11.5-15.0); RED BLOOD CELL COUNT(AUTO) 2.57 MIL/uL (4.5-6.0); WHITE BLOOD COUNT (AUTO) 3.3 K/uL (4.3-11.0)
[2017-05-14 04:54] LABS: ALANINE AMINOTRANSFERASE 17 U/L (12-78); ALBUMIN 2.5 g/dL (3.4-5.0); ALKALINE PHOSPHATASE 97 U/L (46-116); ASPARTATE AMINOTRANSFERASE 23 U/L (15-37); BILIRUBIN,TOTAL 0.8 mg/dL (0.2-1.0); CALCIUM, SERUM 7.3 mg/dL (8.5-10.1); CARBON DIOXIDE 23 mmol/L (21-32); CHLORIDE 106 mmol/L (98-107); CREATININE 2.8 mg/dL (0.6-1.3); GLUCOSE 87 mg/dL (74-106); MAGNESIUM 1.8 mg/dL (1.8-2.4); PHOSPHORUS 2.4 mg/dL (2.5-4.9); POTASSIUM 3.6 mmol/L (3.5-5.1); SODIUM SERUM 137 mmol/L (136-145); TOTAL PROTEIN, SERUM 6.8 g/dL (6.4-8.2); UREA NITROGEN, BLOOD 16 mg/dL (7-18)
[2017-05-14] MEDS: ONDANSETRON 4 MG TAB.RAPDIS SL SCH (05:01)
[2017-05-14 05:02] LABS: CHOLESTEROL 71 mg/dL (<200); HDL CHOLESTEROL 35 mg/dL (40-60); LDL 21 mg/dL (0-99); THYROID STIMULATING HORMONE 1.304 uIU/mL (0.358-3.74); TRIGLYCERIDES 119 mg/dL (30-150)
[2017-05-14 05:03] LABS: PLATELET COUNT (AUTO) 46 /CMM (150-450)
[2017-05-14 05:52] LABS: BAND % (MANUAL) 6 % (0.0-5.0); EOSINOPHILS % (MANUAL) 1 % (0-4); LYMPHOCYTES % (MANUAL) 56 % (16-48); MONOCYTES % (MANUAL) 13 % (0-11.0); NEUTROPHILS % (MANUAL) 24 (42-76)
[2017-05-14] MEDS ORDERED: NOREPINEPHRINE 4 MG/4 ML AMPUL IV ONE (06:40)
--- NOTE | 2017-05-14 06:45 | NUR ---
Patient resting.Received 1 liter NS bolus at 2210 for low BP with some improvement.But this time BP down to 77/38. Levophed drip started at 2 mcg/min and will titrate accordingly.Patient denies pain or any discomfort.Am care done. Platelet Count =[address]Simona Oliva.no new orders received just to monitor platelet.
[2017-05-14] MEDS: BLOOD SUGAR DIAGNOSTIC 1 EACH STRIP IN SCH ×4 (07:30→17:30)
--- NOTE | 2017-05-14 07:30 | NUR ---
DR WALSH IN TO R/V. D/W ALL LABS, MEDS, VS AND PRESSOR USE OF LOW DOSE LEVOPHED AND QUESTION OF BLOOD TX. SEE ORDERS FOR RPCS
--- NOTE | 2017-05-14 08:00 | NUR ---
BOLIVIAN SPEAKING NURSE TRANSLATED THROUGHOUT. PT A&O X3 DENIES PAIN OR SOB. SBP 85-120 DEPENDING ON LEVEL OF ACTIVITY. PACED ON MONITOR AT 60. PT 100% PACED. BS < 140 NO COVERAGE. ECHO REVIEWED WITH DR WALSH AND DR LOVING. MDS STATE NO TAMPONADE NOR EFFECT ON PTS CARDIAC OUTPUT OR HEMODYNAMICS FROM EFFUSION AROUND THE HEART. DISCUSSED WITH DR LOVING QUESTION OF ANITBOTICS/ NONE AT THIS TIME. PT AFEBRILE. NO OBVIOUS BLEEDING. FOR SECOND UNIT OF PACKED CELLS TODAY RX FOR ANEMIA AND SBP 90. AT BEDSIDE APPRAISED OF ALL EVENTS.
--- NOTE | 2017-05-14 08:30 | NUR ---
DR LOVING IN TO R/V. WILL STOP LEVOPHED AND START RPC WHEN AVAILABLE.
[2017-05-14] MEDS: PANTOPRAZOLE 40 MG TABLET.DR PO SCH (08:46)
[2017-05-14] MEDS: DUTASTERIDE (0.5 MG) 0.5 MG CAPSULE PO SCH (08:46)
[2017-05-14] MEDS: ALLOPURINOL 100 MG TABLET PO SCH (08:46)
[2017-05-14] MEDS ORDERED: LISINOPRIL (5MG) 5 MG TABLET PO SCH (09:00)
[2017-05-14] MEDS: Z GUARD REMEDY 2 OZ OINT TP SCH ×2 (09:00→21:12)
[2017-05-14] MEDS ORDERED: CARVEDILOL 3.125 MG TABLET PO SCH (09:00)
--- NOTE | 2017-05-14 10:10 | NUR ---
UNIT OF BLOOD STARTED AT 0953 RUNNING AT 125ML/HR. PT BP 91/46 SAT AT 99% TOLERATING WELL AT THIS TIME. WILL CONTINUE TO MONITOR.
--- NOTE | 2017-05-14 11:40 | NUR ---
SKIN ASSESSMENT DONE. VERY MILD SACRAL REDNESS NOTED, Z GUARD APPLIED. PT ABLE TO TURN ON HIS OWN THEREFORE NO KCI MATTRESS ORDERED DUE TO PT MOVING FREQUENTLY IN BED. SMALL REDNESS/OPEN SCAB SEEN ON ARM AND SHOULDER MEPELEX APPLIED.
--- NOTE | 2017-05-14 13:10 | NUR ---
PT TOLERATED BLOOD TRANSFUSION WELL. NO SIGNS OF SOB OR DISTRESS NOTED. VSS STABLE. IV SITE DRY AND INTACT. WILL CONTINUE TO MONITOR.
[2017-05-14] MEDS: ACETAMINOPHEN 325 MG TABLET PO PRN (13:46)
[2017-05-14] MEDS ORDERED: ONDANSETRON 4 MG TAB.RAPDIS SL PRN (14:00)
--- NOTE | 2017-05-14 14:00 | NUR ---
DR PARTDIAYA IN TO R/V AND SPEAK WITH FAMILY REGARDING POSSIBLE PERICARDIAL WINDOW FOR MONDAY
[2017-05-14] MEDS: hydrOXYzine HCL SYRUP 10 MG/5 ML UDC PO PRN (14:13)
[2017-05-14] MEDS ORDERED: MIDODRINE HCL (5MG) 5 MG TABLET PO SCH (14:30)
--- NOTE | 2017-05-14 16:00 | NUR ---
PATH REPORTS FROM PERICARDIAL WINDOW SENT TO VITA DANIEL AND DR LOVING
--- NOTE | 2017-05-14 17:30 | NUR ---
DR ANDREWS IN TO R/V. PLATELETPHERESIS SET UP ORDERED. MULTIPLE REQUESTS TO JUNAID NERI FOR RECORDS
[2017-05-14] MEDS: MIDODRINE HCL (5MG) 5 MG TABLET PO SCH (17:54)
[2017-05-14 18:47] LABS: IRON, SERUM 73 ug/dl (50-175); TOTAL IRON BINDING CAPACITY 216 ug/dl (250-450)
--- NOTE | 2017-05-14 19:19 | NUR ---
LEVOPHED OFF SINCE 814. ALERT. O X 4. R.A. SPO2 96%
[2017-05-14 19:29] LABS: INR 1.13 (0.87-1.13); PROTHROMBIN TIME 12.2 SECS (9.5-12.7)
[2017-05-14 19:34] LABS: D-DIMER 8.6 mg/L(FEU (0.17-0.50)
--- NOTE | 2017-05-14 20:00 | NUR ---
Patient A/0 X 3.Appears comfortable.Eating dinner with good appetite . HOB elevated.Family at bedside. Denies pain or any discomfort.V-paced per monitor.VS stable.Respiration even and unlabored.Plan of care explained to patient and family.All verbalized understanding.Safety precaution maintained with call light at bedside within easy reach.Platelet trending up from 46 to 49.No active bleeding noted.
--- NOTE | 2017-05-14 21:30 | NUR ---
Faxed request for medical records to office.
--- NOTE | 2017-05-14 22:00 | NUR ---
Blood sugar checked 114.No coverage given.All due medications administered.Patient independent with bed mobility.
[2017-05-14] MEDS: LATANOPROST EYE DROP 0.005% 2.5 ML BOTTLE EACHEYE SCH (22:01)
[2017-05-15] VITALS (42 sets, daily range): BP systolic 79–135; BP diastolic 38–64
[2017-05-15 05:15] LABS: BASOPHILS % (AUTO) 0.7 % (0.0-2.0); EOSINOPHILS % (AUTO) 1.8 % (0.0-6.0); HEMATOCRIT 27 % (39-51); LYMPHOCYTES # (AUTO) 1.2 /CMM (0.8-4.8); LYMPHOCYTES % (AUTO) 51.7 % (20.0-44.0); MEAN CORPUSCULAR HEMOGLOBIN 33 PG (26.0-33.0); MEAN CORPUSCULAR HGB CONC 34 g/dl (31.0-36.0); MEAN CORPUSCULAR VOLUME 97 fL (80-96); MONOCYTES # (AUTO) 0.4 /CMM (0.1-1.30); MONOCYTES % (AUTO) 18.6 % (2.0-12.0); NEUTROPHILS # (AUTO) 0.6 /CMM (1.8-8.9); NEUTROPHILS % (AUTO) 27.2 % (43.0-81.0); RDW COEFFICIENT OF VARIATION 21.8 (11.5-15.0); RED BLOOD CELL COUNT(AUTO) 2.74 MIL/uL (4.5-6.0); WHITE BLOOD COUNT (AUTO) 2.2 K/uL (4.3-11.0)
[2017-05-15 05:25] LABS: ALANINE AMINOTRANSFERASE 14 U/L (12-78); ALBUMIN 2.3 g/dL (3.4-5.0); ALKALINE PHOSPHATASE 97 U/L (46-116); ASPARTATE AMINOTRANSFERASE 22 U/L (15-37); BILIRUBIN,TOTAL 0.9 mg/dL (0.2-1.0); CALCIUM, SERUM 7.4 mg/dL (8.5-10.1); CARBON DIOXIDE 21 mmol/L (21-32); CHLORIDE 106 mmol/L (98-107); CREATININE 3.7 mg/dL (0.6-1.3); GLUCOSE 77 mg/dL (74-106); MAGNESIUM 1.7 mg/dL (1.8-2.4); PHOSPHORUS 3.2 mg/dL (2.5-4.9); PLATELET COUNT (AUTO) 40 /CMM (150-450); POTASSIUM 3.6 mmol/L (3.5-5.1); SODIUM SERUM 137 mmol/L (136-145); TOTAL PROTEIN, SERUM 6.6 g/dL (6.4-8.2); UREA NITROGEN, BLOOD 25 mg/dL (7-18)
--- NOTE | 2017-05-15 06:24 | NUR ---
Patient resting.VS remains stable.v paced.AM care done.Denies pain or any discomfort.AM lab resulted.Platelet CT= 40 will call today morning prior to platelet transfusion of 2 units. No BM noted.No active bleeding noted.Kept comfortable and safe with call light at bedside.
[2017-05-15 06:26] LABS: BAND % (MANUAL) 8 % (0.0-5.0); EOSINOPHILS % (MANUAL) 2 % (0-4); LYMPHOCYTES % (MANUAL) 42 % (16-48); METAMYELOCYTES % 1 % (0-0); MONOCYTES % (MANUAL) 16 % (0-11.0); MYELOCYTES % 1 % (0-0); NEUTROPHILS % (MANUAL) 30 (42-76)
--- NOTE | 2017-05-15 08:00 | NUR ---
ICU/RN PT IS AWAKE ALERT.ORIENTED-4..V/S STABLE AFEBRILE.NO -PAIN REPORTED AT THIS TIME.IV-HL.ANURIC ON HD.RIGHT CHEST HD CATH .LABS REVIEW. PLT-40. NOTIFIED.NEW ORDERS RECEIVED.
--- NOTE | 2017-05-15 08:03 | NUR ---
WOUND CARE CONSULT PATIENT SEEN AND SKIN INTEGRITY ASSESSMENT DONE. PLEASE SEE RETIREMENT OFFICER ASSESSMENT IN PCS FOR TODAY. PATIENT WITH CURRENT ANNALISA AT 18, INDEPENDENT WITH BED MOBILITY AT THIS TIME. TREATMENT ORDERS DISCUSSED WITH DNP AND DNP IN AGREEMENT. ALL SKIN MANAGEMENT DISCUSSED WITH NURSING AT THE BEDSIDE. RECOMMEND BILATERAL HEEL FLOATING. PATIENT CLARENCE ISOFLEX LOW AIRLOSS BED. ALL PRESSURE ULCER PREVENTION MEASURES NOTED TO BE IN PLACE. Addendum: 05/15/17 at 0806 by JT MATOS WNDNU Amended: Links added.
[2017-05-15] MEDS ORDERED: ASPIRIN 81 MG TAB.CHEW PO SCH (09:00)
--- NOTE | 2017-05-15 09:00 | NUR ---
ICU/RN DUE MEDS ARE GIVEN ORDERED.MIDLINE INSERTED.PT EATS 100% FROM HIS BREAKFAST TRAY.
[2017-05-15] MEDS: hydrOXYzine HCL SYRUP 10 MG/5 ML UDC PO PRN (09:10)
[2017-05-15] MEDS: PANTOPRAZOLE 40 MG TABLET.DR PO SCH (09:10)
[2017-05-15] MEDS: ALLOPURINOL 100 MG TABLET PO SCH (09:10)
[2017-05-15] MEDS: MIDODRINE HCL (5MG) 5 MG TABLET PO SCH ×3 (09:10→18:23)
[2017-05-15] MEDS: NEOMY SULF/BACITRAC ZN/POLY 15 GM TUBE TP SCH (09:11)
[2017-05-15] MEDS: Z GUARD REMEDY 2 OZ OINT TP SCH ×2 (09:12→21:58)
[2017-05-15] MEDS: DUTASTERIDE (0.5 MG) 0.5 MG CAPSULE PO SCH (10:07)
[2017-05-15] MEDS ORDERED: EPOETIN ALFA (10,000 UNIT) 10,000 UNIT/ML VIAL IV ONE ×2 (11:00→11:30)
[2017-05-15] MEDS: BLOOD SUGAR DIAGNOSTIC 1 EACH STRIP IN SCH ×3 (11:28→21:57)
[2017-05-15 12:10] LABS: IMMUNOGLOBULIN A, SERUM 153 mg/dL (61-437); IMMUNOGLOBULIN G, SERUM 2335 mg/dL (700-1600); IMMUNOGLOBULIN M, SERUM 13 mg/dL (15-143)
--- NOTE | 2017-05-15 14:00 | NUR ---
ICU/RN 2 UNITS OF PLATELETS IV GIVEN ORDERED.PT TOLERATED WELL .NO COMPLICATIONS NOTED.V/S STABLE .AFEBRILE.NO PAIN REPORTED AT THIS TIME.
[2017-05-15] MEDS ORDERED: Magnesium 1GM/D5W 100ML PREMIX 100 ML IV SCH (14:30)
--- NOTE | 2017-05-15 15:00 | NUR ---
ICU/RN MG LEVEL 1.7.1 GM MAGNESIUM SULFATE IV GIVEN ORDERED.
[2017-05-15 15:53] LABS: BASOPHILS % (AUTO) 0.7 % (0.0-2.0); EOSINOPHILS % (AUTO) 1.8 % (0.0-6.0); HEMATOCRIT 28 % (39-51); HEMOGLOBIN 9.3 g/dL (13.5-17.5); LYMPHOCYTES # (AUTO) 1.1 /CMM (0.8-4.8); LYMPHOCYTES % (AUTO) 49.2 % (20.0-44.0); MEAN CORPUSCULAR HEMOGLOBIN 32 PG (26.0-33.0); MEAN CORPUSCULAR HGB CONC 33 g/dl (31.0-36.0); MEAN CORPUSCULAR VOLUME 97 fL (80-96); MONOCYTES # (AUTO) 0.4 /CMM (0.1-1.30); MONOCYTES % (AUTO) 18.7 % (2.0-12.0); NEUTROPHILS # (AUTO) 0.7 /CMM (1.8-8.9); NEUTROPHILS % (AUTO) 29.6 % (43.0-81.0); PLATELET COUNT (AUTO) 100 /CMM (150-450); RDW COEFFICIENT OF VARIATION 22.7 (11.5-15.0); RED BLOOD CELL COUNT(AUTO) 2.86 MIL/uL (4.5-6.0); WHITE BLOOD COUNT (AUTO) 2.3 K/uL (4.3-11.0)
[2017-05-15 16:16] LABS: EOSINOPHILS % (MANUAL) 3 % (0-4); LYMPHOCYTES % (MANUAL) 53 % (16-48); MONOCYTES % (MANUAL) 10 % (0-11.0); NEUTROPHILS % (MANUAL) 34 (42-76)
--- NOTE | 2017-05-15 17:52 | NUR ---
ICU/RN HD IS OVER 500 ML IS OUT.BP STABLE.CONTINUE MONITORING.
[2017-05-15] MEDS: ACETAMINOPHEN 325 MG TABLET PO PRN (20:57)
[2017-05-15] MEDS ORDERED: FEE PK DOSING 1 MIN EA MC ONE (21:00)
[2017-05-15] MEDS ORDERED: VANCOMYCIN 1 GM in IV D5W 250ml IV ONE (21:00)
[2017-05-15] MEDS: LATANOPROST EYE DROP 0.005% 2.5 ML BOTTLE EACHEYE SCH (21:59)
[2017-05-16] VITALS (35 sets, daily range): BP systolic 85–135; BP diastolic 36–79
[2017-05-16 04:47] LABS: BASOPHILS % (AUTO) 0.7 % (0.0-2.0); EOSINOPHILS % (AUTO) 2.4 % (0.0-6.0); HEMATOCRIT 23 % (39-51); HEMOGLOBIN 7.9 g/dL (13.5-17.5); MEAN CORPUSCULAR HEMOGLOBIN 33 PG (26.0-33.0); MEAN CORPUSCULAR HGB CONC 34 g/dl (31.0-36.0); MEAN CORPUSCULAR VOLUME 97 fL (80-96); MONOCYTES # (AUTO) 0.4 /CMM (0.1-1.30); MONOCYTES % (AUTO) 20.9 % (2.0-12.0); NEUTROPHILS # (AUTO) 0.4 /CMM (1.8-8.9); PLATELET COUNT (AUTO) 74 /CMM (150-450); RED BLOOD CELL COUNT(AUTO) 2.42 MIL/uL (4.5-6.0)
[2017-05-16 05:01] LABS: MAGNESIUM 1.6 mg/dL (1.8-2.4); PHOSPHORUS 2.8 mg/dL (2.5-4.9)
[2017-05-16 05:11] LABS: WHITE BLOOD COUNT (AUTO) 1.9 K/uL (4.3-11.0)
[2017-05-16 05:13] LABS: ALANINE AMINOTRANSFERASE 15 U/L (12-78); ALBUMIN 2.1 g/dL (3.4-5.0); ALKALINE PHOSPHATASE 86 U/L (46-116); ASPARTATE AMINOTRANSFERASE 24 U/L (15-37); BILIRUBIN,TOTAL 0.9 mg/dL (0.2-1.0); CALCIUM, SERUM 6.7 mg/dL (8.5-10.1); CARBON DIOXIDE 22 mmol/L (21-32); CHLORIDE 105 mmol/L (98-107); CREATININE 3.5 mg/dL (0.6-1.3); GLUCOSE 76 mg/dL (74-106); POTASSIUM 3.2 mmol/L (3.5-5.1); SODIUM SERUM 138 mmol/L (136-145); TOTAL PROTEIN, SERUM 5.7 g/dL (6.4-8.2); UREA NITROGEN, BLOOD 23 mg/dL (7-18)
[2017-05-16 05:14] LABS: INR 1.17 (0.87-1.13); PROTHROMBIN TIME 12.6 SECS (9.5-12.7)
[2017-05-16 05:51] LABS: BAND % (MANUAL) 1 % (0.0-5.0); EOSINOPHILS % (MANUAL) 3 % (0-4); LYMPHOCYTES % (MANUAL) 52 % (16-48); MONOCYTES % (MANUAL) 12 % (0-11.0); NEUTROPHILS % (MANUAL) 32 (42-76)
[2017-05-16] MEDS ORDERED: VANCOMYCIN 500 MG in IV D5W 100 ML IV PRN (06:00)
--- NOTE | 2017-05-16 07:15 | NUR ---
ICU INITIAL NOTE RECEIVED PT IN BED, ASLEEP, EASY TO AROUSE, IS AT BEDSIDE, PT IS A/O X3, ABLE TO MAKE NEEDS KNOWN, PT IS ON RA, SATING 100%, NO S/S OF RESP.DISTRESS OR SOB NOTED AT THIS TIME, PT IS ON BEDSIDE MONITOR SHOWING SR W/ VPACING 70'S, NO C/O OF CHEST PAIN OR DISCOMFORT AT THIS TIME, PT IS ANURIC, PT HAS BEBO MIDLINE #18G,SL, LAC # 18G,SL, C/D/I/PATENT, FLUSHING WELL, NO S/S OF INFECTION/ INFILTRATION NOTED AT THIS TIME, PT HAS RCW HD CATH, DRESSING INTACT/CLEAN, ALL SAFETY MEASURES IN PLACE AT ALL TIMES, CALL LIGHT WITHIN EASY REACH, ALL NEEDS MET AT THIS TIME, WILL MONITOR PT CLOSELY FOR CHANGES
[2017-05-16 08:12] LABS: IMMUNOGLOBULIN A, SERUM 152 mg/dL (61-437); IMMUNOGLOBULIN G, SERUM 2182 mg/dL (700-1600); IMMUNOGLOBULIN M, SERUM 17 mg/dL (15-143)
[2017-05-16] MEDS: DUTASTERIDE (0.5 MG) 0.5 MG CAPSULE PO SCH (08:23)
[2017-05-16] MEDS: BLOOD SUGAR DIAGNOSTIC 1 EACH STRIP IN SCH ×5 (08:23→22:00)
[2017-05-16] MEDS: MIDODRINE HCL (5MG) 5 MG TABLET PO SCH ×3 (08:24→17:21)
[2017-05-16] MEDS: NEOMY SULF/BACITRAC ZN/POLY 15 GM TUBE TP SCH (08:24)
[2017-05-16] MEDS: ALLOPURINOL 100 MG TABLET PO SCH (08:24)
[2017-05-16] MEDS: PANTOPRAZOLE 40 MG TABLET.DR PO SCH (08:24)
[2017-05-16] MEDS: Z GUARD REMEDY 2 OZ OINT TP SCH ×2 (08:24→21:48)
[2017-05-16] MEDS ORDERED: DOCUSATE SODIUM 100 MG CAPSULE PO PRN (14:00)
[2017-05-16] MEDS ORDERED: POLYETHYLENE GLYCOL 3350 17 GM POWD.PACK PO ONE (14:30)
[2017-05-16] MEDS: LATANOPROST EYE DROP 0.005% 2.5 ML BOTTLE EACHEYE SCH (21:48)
[2017-05-16] MEDS ORDERED: FILGRASTIM (300 MCG) 300 MCG/ML VIAL SQ SCH (22:00)
--- NOTE | 2017-05-16 23:00 | NUR ---
PROCESS ENGINEERING TECHNICIAN - DR. ANDREWS ORDERED NEUPOGEN 300 MCG/SQ. IT WAS NOTED BY RN AT 23:00 & ORDERED BY MD AT 22:00. THERE IS NO NEUPOGEN ON ICU FLOOR, SO BIODIESEL PROCESSING TECHNICIAN-CARLITOS WAS NOTIFIED. HS STATED THAT SHE LOOKED IN N[facility]OCKER, E.R. & AROUND THE REST OF HOSPITAL. NONE AVAILABLE. HS CALLED IN PHARMACY. THIS WAS NOTED AT 00:45. AWAITING FOR RX. PT.HAS AT BS. DR. PETERSON PHONED AT [facility] OF SHIFT & WAS GIVEN PT'S DAUGHTER "ALFONZO" PHONE NUMBER. FAMILY WANTS TO TALK W/MD PRIOR TO SIGNING CONSENT. ORDERS REC'D BY DR. PETERSON. PT.WILL BE "NPO" AFTER MN. T&S TO BE ADDED TO AM LABS. LEFT THORACOSCOPY & PERICARDIAL WINDOW PROCEDURE IS TO BE DONE TOMORROW. PT. IS ON RA W/O2 SATS AT 97%. ALL PORTS HL'D. AFEBRILE. ALL PULSES PALPABLE X 4 EXT. CONT.POC.
[2017-05-17] VITALS (22 sets, daily range): BP systolic 78–120; BP diastolic 29–69
[2017-05-17 04:35] LABS: BASOPHILS % (AUTO) 1.1 % (0.0-2.0); EOSINOPHILS % (AUTO) 1.8 % (0.0-6.0); HEMATOCRIT 28 % (39-51); HEMOGLOBIN 9.3 g/dL (13.5-17.5); LYMPHOCYTES % (AUTO) 36.7 % (20.0-44.0); MEAN CORPUSCULAR HEMOGLOBIN 32 PG (26.0-33.0); MEAN CORPUSCULAR HGB CONC 34 g/dl (31.0-36.0); MEAN CORPUSCULAR VOLUME 97 fL (80-96); MONOCYTES # (AUTO) 0.5 /CMM (0.1-1.30); MONOCYTES % (AUTO) 19.5 % (2.0-12.0); NEUTROPHILS # (AUTO) 1.1 /CMM (1.8-8.9); NEUTROPHILS % (AUTO) 40.9 % (43.0-81.0); PLATELET COUNT (AUTO) 76 /CMM (150-450); RDW COEFFICIENT OF VARIATION 22.4 (11.5-15.0); RED BLOOD CELL COUNT(AUTO) 2.88 MIL/uL (4.5-6.0); WHITE BLOOD COUNT (AUTO) 2.7 K/uL (4.3-11.0)
[2017-05-17 04:52] LABS: CALCIUM, SERUM 7.5 mg/dL (8.5-10.1); CREATININE 4.7 mg/dL (0.6-1.3); GLUCOSE 68 mg/dL (74-106); MAGNESIUM 1.7 mg/dL (1.8-2.4); PHOSPHORUS 3.5 mg/dL (2.5-4.9); UREA NITROGEN, BLOOD 30 mg/dL (7-18)
[2017-05-17 04:59] LABS: CARBON DIOXIDE 24 mmol/L (21-32); CHLORIDE 103 mmol/L (98-107); POTASSIUM 3.8 mmol/L (3.5-5.1); SODIUM SERUM 137 mmol/L (136-145)
[2017-05-17 05:46] LABS: BAND % (MANUAL) 4 % (0.0-5.0); LYMPHOCYTES % (MANUAL) 41 % (16-48); MONOCYTES % (MANUAL) 13 % (0-11.0); NEUTROPHILS % (MANUAL) 42 (42-76)
[2017-05-17] MEDS ORDERED: IV NS 0.9% 500 ML IV SCH (06:57)
[2017-05-17] MEDS: PANTOPRAZOLE 40 MG TABLET.DR PO SCH (07:30)
[2017-05-17] MEDS: BLOOD SUGAR DIAGNOSTIC 1 EACH STRIP IN SCH ×3 (07:59→16:30)
[2017-05-17] MEDS: ALLOPURINOL 100 MG TABLET PO SCH (08:00)
[2017-05-17] MEDS: MIDODRINE HCL (5MG) 5 MG TABLET PO SCH ×3 (08:00→16:24)
[2017-05-17] MEDS: DUTASTERIDE (0.5 MG) 0.5 MG CAPSULE PO SCH (08:00)
--- NOTE | 2017-05-17 08:00 | NUR ---
ICU/RN - Notes Pt kept NPO as ordered, pt for surgery today.
[2017-05-17] MEDS: NEOMY SULF/BACITRAC ZN/POLY 15 GM TUBE TP SCH (08:03)
[2017-05-17] MEDS: Z GUARD REMEDY 2 OZ OINT TP SCH (08:03)
[2017-05-17] MEDS ORDERED: IV NS 0.9% 1,000 ML IV PRN (08:31)
--- NOTE | 2017-05-17 08:40 | NUR ---
ICU/RN - Notes Received order from Dr Meza to transfuse 1 unit platelet now, and hold 1 unit platelet for surgery today. Laboratory called and made aware of stat order.
--- NOTE | 2017-05-17 10:15 | NUR ---
ICU/RN - Notes 1 unit of platelet transfused as ordered, no adverse reactions noted.
[2017-05-17] MEDS ORDERED: EPOETIN ALFA (10,000 UNIT) 10,000 UNIT/ML VIAL SQ ONE (10:30)
--- NOTE | 2017-05-17 11:50 | NUR ---
ICU/RN - Notes Family at bedside, updated on plan of care. Pt currently receiving hemodialysis at this time in no acute distress.
[2017-05-17 11:52] LABS: BASOPHILS % (AUTO) 0.5 % (0.0-2.0); EOSINOPHILS % (AUTO) 0.3 % (0.0-6.0); HEMATOCRIT 26 % (39-51); HEMOGLOBIN 8.7 g/dL (13.5-17.5); LYMPHOCYTES # (AUTO) 0.8 /CMM (0.8-4.8); LYMPHOCYTES % (AUTO) 24.4 % (20.0-44.0); MEAN CORPUSCULAR HEMOGLOBIN 32 PG (26.0-33.0); MEAN CORPUSCULAR HGB CONC 34 g/dl (31.0-36.0); MEAN CORPUSCULAR VOLUME 96 fL (80-96); MONOCYTES # (AUTO) 0.5 /CMM (0.1-1.30); MONOCYTES % (AUTO) 14.6 % (2.0-12.0); NEUTROPHILS % (AUTO) 60.2 % (43.0-81.0); PLATELET COUNT (AUTO) 86 /CMM (150-450); RDW COEFFICIENT OF VARIATION 22.2 (11.5-15.0); RED BLOOD CELL COUNT(AUTO) 2.69 MIL/uL (4.5-6.0); WHITE BLOOD COUNT (AUTO) 3.4 K/uL (4.3-11.0)
[2017-05-17 12:28] LABS: BAND % (MANUAL) 10 % (0.0-5.0); LYMPHOCYTES % (MANUAL) 23 % (16-48); MONOCYTES % (MANUAL) 13 % (0-11.0); NEUTROPHILS % (MANUAL) 54 (42-76)
--- NOTE | 2017-05-17 12:30 | NUR ---
ICU/RN - Notes Hemodialysis completed with 1.2 L output. Vital signs stable.
--- NOTE | 2017-05-17 13:45 | NUR ---
ICU/RN - Notes Followed up with Surgery to find out when pt will be taken for procedure. Per OR, Dr Real cancelled surgery today and rescheduled for tomorrow morning [address] Castaneda. Family and patient informed. Daughter, Mayra, has questions/concerns regarding surgery. Called Dr Real and Dr Castaneda's office to get a hold of MD, number of family member provided to box sealing machine catcher. Per box sealing machine catcher, will give message to Dr Castaneda to call pt's daughter.
[2017-05-17] MEDS ORDERED: EPOETIN ALFA (10,000 UNIT) 10,000 UNIT/ML VIAL IV ONE (14:00)
[2017-05-17] MEDS ORDERED: TBO-FILGRASTIM 300 MCG/0.5 ML SYRINGE SQ SCH (15:00)
--- NOTE | 2017-05-17 15:35 | NUR ---
ICU/RN - Notes Pt's daughter Mayra received call from Dr Castaneda, expressed concerns regarding surgery, and MD agreed to cancel surgery (Pericardial window) tomorrow. Dr Meza made aware. No further platelet transfusion needed. Dr Galvez made aware.
[2017-05-17] MEDS ORDERED: MAGNESIUM OXIDE 400 MG TABLET PO ONE (16:00)
--- NOTE | 2017-05-17 16:50 | NUR ---
ICU/RN - Notes Pt refused discharge photos to be taken of sacrum and heels. Explained reason for procedure but pt still strongly refused.
--- NOTE | 2017-05-17 18:54 | NUR ---
ICU/RN - Discharge Pt discharged to home in stable condition. Discharge instructions given to pt. Pt verbalized full understanding of discharge. All belongings taken with pt. IV removed with catheter intact, no s/s of complications. Pt brought down to lobby via wheelchair. Pt left facility via private car with family.
== END 2017-05-17 18:40 | disposition home or self-care (01) | DRG 280 ==
LOC: ER 11:44 → ICU 13:52
PROVIDERS: ADMIT Nurse Practitioner Acute Care; ATTEND Nurse Practitioner Acute Care
PROC: 30233R1 Transfusion of Nonautologous Platelets into Peripheral Vein, Percutaneous Approach (ICD-10-PCS; principal; 2017-05-13)
PROC: 05H533Z Insertion of Infusion Device into Right Subclavian Vein, Percutaneous Approach (ICD-10-PCS; 2017-05-15)
PROC: 30233N1 Transfusion of Nonautologous Red Blood Cells into Peripheral Vein, Percutaneous Approach (ICD-10-PCS; 2017-05-15)
PROC: 5A1D60Z (ICD-10-PCS; 2017-05-15)
DX: I31.3 Pericardial effusion (noninflammatory) (principal); I50.23 Acute on chronic systolic (congestive) heart failure; I21.4 Non-ST elevation (NSTEMI) myocardial infarction; N18.6 End stage renal disease; D61.810 Antineoplastic chemotherapy induced pancytopenia; D68.59 Other primary thrombophilia; I13.2 Hypertensive heart and chronic kidney disease with heart failure and with stage 5 chronic kidney disease, or end stage renal disease; C90.00 Multiple myeloma not having achieved remission; E87.2 Acidosis; D69.59 Other secondary thrombocytopenia; E11.65 Type 2 diabetes mellitus with hyperglycemia; I25.10 Atherosclerotic heart disease of native coronary artery without angina pectoris; I25.5 Ischemic cardiomyopathy; I48.91 Unspecified atrial fibrillation; Z86.73 Personal history of transient ischemic attack (TIA), and cerebral infarction without residual deficits; Z87.891 Personal history of nicotine dependence; Z79.899 Other long term (current) drug therapy; F03.90 Unspecified dementia, unspecified severity, without behavioral disturbance, psychotic disturbance, mood disturbance, and anxiety; E78.5 Hyperlipidemia, unspecified; K21.9 Gastro-esophageal reflux disease without esophagitis; E11.22 Type 2 diabetes mellitus with diabetic chronic kidney disease; Z99.2 Dependence on renal dialysis; D69.6 Thrombocytopenia, unspecified; D50.9 Iron deficiency anemia, unspecified; D64.81 Anemia due to antineoplastic chemotherapy; I95.9 Hypotension, unspecified; Z95.0 Presence of cardiac pacemaker; E78.00 Pure hypercholesterolemia, unspecified; T45.1X5A Adverse effect of antineoplastic and immunosuppressive drugs, initial encounter; Y92.009 Unspecified place in unspecified non-institutional (private) residence as the place of occurrence of the external cause; Z98.61 Coronary angioplasty status; Z79.82 Long term (current) use of aspirin
CPT/HCPCS: 36415; 71010-TC; 72128-TC; 80048-TC; 80053-TC; 80061-TC; 80076-TC; 80162-TC; 80202-TC; 82746; 82784; 82962-TC; 83540-TC; 83605-TC; 83615-TC; 83690-TC; 83735-TC; 84100-TC; 84443-TC; 84484-TC; 85025-TC; 85396; 85610-TC; 85652-TC; 85730-TC; 86334; 86850-TC; 86921-TC; 87040-TC; 87081-TC; 90935-TC; 93307-TC; A4606; A6402; J0885; J1442; J1815; J2185; J3370; J3475; J7030; J7040; J7050; J7060; P9016-BL; P9034-BL; Q0162; Q0177; Z7610

== ENCOUNTER 2017-06-01 02:09 | Inpatient (IN) | payer MEDICARE, OTHER ==
[~2017-06-01] VITALS: Ht 182.9 cm; Wt 75.7 kg
[2017-06-01] VITALS (78 sets, daily range): BP systolic 48–132; BP diastolic 30–80
[~2017-06-01 02:09] MED LIST changes: +ALLO100T PO; -AMIO200T2 PO; +AMLO5TAB2 PO; +CARV3.122 PO; +DEXA1TAB2 PO; -DIGO125T PO; -DOCU250C21 PO; -ERGO500047 PO; -FEBU40TA PO; +HYDR10SY7 PO; -HYDR20TA3 PO; -LACT10SO6 PO; +LENA5CAP PO; -LORA10TA7 PO; -MEMA28CA PO; -METO25TA6 PO; -MIDO5TAB PO; +OLME1TAB3 PO; +ONDA4TAB8 SL; -RISE35TA PO; -TAMS-12 PO; -TIOT18CA3 INH; -TOLT4CAP14 PO
--- NOTE | 2017-06-01 02:19 | NUR ---
BB [id number] FROM HOME. WEAKNESS SINCE LAST NIGHT. PT TOOK MIDODRINE 10mg SUPPLY REQUIREMENTS OFFICER IV INFUSING UPON ARRIVAL. PER EMS REPORT, PT HAD RECEIVED 350cc NS SUPPLY REQUIREMENTS OFFICER AND PLACED IV ON LEFT AC 18G. PT AOX3 ENGLISH SPEAKING, EMT LENIN AT BEDSIDE TO TRANSLATE. RR EVEN AND UNLABORED. NO SOB NOTED. NO NVD AT THIS TIME. PT GOWNED AND PLACED ON MONITOR. DR. MARADIAGA AT BEDSIDE FOR EVAL.
--- NOTE | 2017-06-01 02:20 | NUR ---
PT HAD RIGHT CW HD SITE, RIGHT ARM HD SITE, PER DAUGHTER PLACED SEVERAL WEEKS AGO.
[2017-06-01] MEDS ORDERED: ONDANSETRON HCL/PF 4 MG/2 ML VIAL IV ONE ×2 (02:30→04:00)
[2017-06-01] MEDS ORDERED: IV NS 0.9% 1,000 ML BAG IV ONE ×3 (02:30→04:00)
[2017-06-01] MEDS ORDERED: ONDANSETRON HCL/PF 4 MG/2 ML VIAL ONE ×2 (02:36→03:45)
[2017-06-01 02:37] LABS: BASOPHILS # (AUTO) 0.1 /CMM (0.0-0.2); BASOPHILS % (AUTO) 2.1 % (0.0-2.0); EOSINOPHILS % (AUTO) 0.8 % (0.0-6.0); HEMATOCRIT 28 % (39-51); HEMOGLOBIN 8.8 g/dL (13.5-17.5); LYMPHOCYTES # (AUTO) 2.3 /CMM (0.8-4.8); LYMPHOCYTES % (AUTO) 48.6 % (20.0-44.0); MEAN CORPUSCULAR HEMOGLOBIN 32 PG (26.0-33.0); MEAN CORPUSCULAR HGB CONC 31 g/dl (31.0-36.0); MEAN CORPUSCULAR VOLUME 102 fL (80-96); MONOCYTES # (AUTO) 0.9 /CMM (0.1-1.30); MONOCYTES % (AUTO) 18.8 % (2.0-12.0); NEUTROPHILS # (AUTO) 1.4 /CMM (1.8-8.9); NEUTROPHILS % (AUTO) 29.7 % (43.0-81.0); PLATELET COUNT (AUTO) 61 /CMM (150-450); RDW COEFFICIENT OF VARIATION 23.4 (11.5-15.0); RED BLOOD CELL COUNT(AUTO) 2.78 MIL/uL (4.5-6.0); WHITE BLOOD COUNT (AUTO) 4.7 K/uL (4.3-11.0)
--- NOTE | 2017-06-01 02:38 | NUR ---
PT ASSIGNED TO ICU 254.
[2017-06-01 02:47] LABS: CALCIUM, SERUM 8.9 mg/dL (8.5-10.1); CARBON DIOXIDE 20 mmol/L (21-32); CHLORIDE 101 mmol/L (98-107); CREATININE 4.7 mg/dL (0.6-1.3); GLUCOSE 141 mg/dL (74-106); POTASSIUM 5.2 mmol/L (3.5-5.1); SODIUM SERUM 134 mmol/L (136-145); UREA NITROGEN, BLOOD 23 mg/dL (7-18)
[2017-06-01 02:51] LABS: INR 1.17 (0.87-1.13); PROTHROMBIN TIME 12.6 SECS (9.5-12.7)
[2017-06-01 02:53] LABS: ALANINE AMINOTRANSFERASE 8 U/L (12-78); ALBUMIN 2.8 g/dL (3.4-5.0); ALKALINE PHOSPHATASE 112 U/L (46-116); ASPARTATE AMINOTRANSFERASE 17 U/L (15-37); BILIRUBIN,DIRECT 0.5 mg/dL (0.0-0.2); BILIRUBIN,TOTAL 0.8 mg/dL (0.2-1.0); TOTAL PROTEIN, SERUM 7.9 g/dL (6.4-8.2)
[2017-06-01 02:55] LABS: TROPONIN I 0.059 ng/mL (0.00-0.056)
--- NOTE | 2017-06-01 02:59 | NUR ---
PT TO CT.
--- NOTE | 2017-06-01 03:18 | NUR ---
PT RETURNED FROM CT.
[2017-06-01 03:54] LABS: BAND % (MANUAL) 4 % (0.0-5.0); LYMPHOCYTES % (MANUAL) 55 % (16-48); MONOCYTES % (MANUAL) 10 % (0-11.0); NEUTROPHILS % (MANUAL) 30 (42-76); PROMYELOCYTES % 1 % (0-0)
--- NOTE | 2017-06-01 03:59 | NUR ---
DR. MARADIAGA AT BEDSIDE TO INSERT CENTRAL LINE.
[2017-06-01] MEDS ORDERED: NOREPINEPHRINE 4 MG/4 ML AMPUL IV ONE (04:05)
[2017-06-01] MEDS: NOREPINEPHRINE 8 MG in IV D5W 500 ML IV PRN ×2 (04:10→09:21)
--- NOTE | 2017-06-01 04:21 | NUR ---
PT INTUBATED PER DR. MARADIAGA, RT AT BEDSIDE. ET TUBE 7.5, 25 AT THE LIP.
[2017-06-01] MEDS ORDERED: MIDAZOLAM HCL 5 MG/5ML VIAL ONE (04:28)
--- NOTE | 2017-06-01 04:30 | NUR ---
VERBAL ORDERS PER DR. MARADIAGA TO GIVE VERSED 5MG IVP. PT MEDICATED.
[2017-06-01] MEDS ORDERED: PROPOFOL 100 ML IV ONE (04:31)
--- NOTE | 2017-06-01 04:45 | NUR ---
DR. MARADIAGA AT BEDSIDE TO INSERT CENTRAL LINE.
--- NOTE | 2017-06-01 04:45 | NUR ---
RT PT INTUBATED BY MD MARADIAGA WITH ETT 7.5 @ 25CM LIP. BILATERAL CHEST RISE AND FALL NOTED. BILATERAL BREATH SOUNDS AUSCULTATED. POSITIVE CO2 COLOR CHANGE. ETT PATENT AND SECURE VIA ANCHOR FAST. PT CONNECTED TO VENT WITH NOTED SETTING PER ORDERS. VENT PLUGGED IN TO RED OUTLET. ALARM SET AND AUDIBLE. DISCONNECT ALARM VERIFIED. [facility]BU BAG AT [facility]. WILL CONTINUE TO MONITOR. Addendum: 06/01/17 at 0450 by RAIN PERERA RT Amended: Links added.
--- NOTE | 2017-06-01 04:50 | NUR ---
DR. MARADIAGA PLACED RIGHT SIDED IJ CENTRAL LINE TRIPLE LUMEN.
--- NOTE | 2017-06-01 04:51 | NUR ---
XRAY AT BEDSIDE
[2017-06-01] MEDS ORDERED: PROPOFOL 100 ML IV PRN (05:00)
[2017-06-01] MEDS ORDERED: MIDAZOLAM HCL 2 MG/2ML VIAL IV ONE (05:00)
--- NOTE | 2017-06-01 05:00 | NUR ---
PER DR. HIREN GRANT TO USE CENTRAL LINE RIGHT IJ
--- NOTE | 2017-06-01 05:11 | NUR ---
16 FR KLINE CATH PLACED, PER MD ORDER. URINE COLLECTED. CALLED LAB FOR CRUCIBLE FURNACE TENDER.
[2017-06-01] MEDS ORDERED: ACETAMINOPHEN 325 MG TABLET PO PRN (05:30)
[2017-06-01] MEDS ORDERED: ZOLPIDEM TARTRATE 5 MG TABLET PO PRN (05:30)
[2017-06-01] MEDS ORDERED: MAG HYDROX/AL HYDROX/SIMETH 30 ML UDC PO PRN (05:30)
[2017-06-01] MEDS ORDERED: ONDANSETRON HCL/PF 4 MG/2 ML VIAL IVP PRN (05:30)
[2017-06-01] MEDS ORDERED: Z GUARD REMEDY 2 OZ OINT TP PRN (05:30)
[2017-06-01] MEDS ORDERED: MAGNESIUM HYDROXIDE 30 ML UDC PO PRN (05:30)
[2017-06-01] MEDS ORDERED: HYDROCODONE/APAP 5/325MG 1 EACH TABLET PO PRN (05:30)
--- NOTE | 2017-06-01 05:31 | NUR ---
REPORT GIVEN TO PURNIMA/BI ON BEHALF OF PRIMARY NURSE. RT AT BEDSIDE. PT TO BE TRANSFERED TO ICU.
[2017-06-01 05:41] LABS: APPEARANCE,URINE CLOUDY (CLEAR); BILIRUBIN,URINE 1+ (NEGATIVE); BLOOD, URINE 3+ Ery/uL (NEGATIVE); COLOR,URINE BROWN (YELLOW); KETONES,URINE NEGATIVE (NEGATIVE); LEUKOCYTE ESTERASE ,URINE TRACE (NEGATIVE); NITRITE, URINE NEGATIVE (NEGATIVE); PROTEIN,URINE 3+ mg/dl (NEGATIVE); UGLUCOSE NEGATIVE (NEGATIVE); UROBILINOGEN,URINE 0.2 EU/dL (0.2)
[2017-06-01 05:50] LABS: BACTERIA,URINE None seen /HPF (None Seen); RBC,URINE 21-50 /HPF (0-2); SQUAMOUS EPITHELIAL CELL,UR Few /HPF (None Seen)
--- NOTE | 2017-06-01 05:50 | NUR ---
PT TRANSFERED PER ACLS PROTOCOL.
[2017-06-01 05:51] LABS: HYALINE CASTS, URINE Few /LPF (None Seen)
--- NOTE | 2017-06-01 05:55 | NUR ---
RN/ICU- ADMITTED THIS 86 Y/O MALE FROM ER PER ACLS PROTOCOL. NURSING FOCUS, ALTERED RESPIRATORY STATUS R/T ACUTE RESPIRATORY FAILURE.ROUTINE ICU ADMISSION CARE INITIATED. . ON LEVOPHED DRIP AT 10 MCG/MIN, BP-78/36. EKG VPACED, W/ HR-69/MIN. ON DIPRIVAN DRIP AT 10 MCG/KG/MIN. ON THE VENT PER ETT.ON AC MODE, RATE-14, VT-500, FIO2-100%, PEEP+5. SATS.NOT TRACKING. W/ VERY COLD EXTREMITIES.
[2017-06-01] MEDS ORDERED: DEXAMETHASONE 1 MG TABLET PO SCH (06:00)
--- NOTE | 2017-06-01 06:10 | NUR ---
RN/ICU- PT BP-55/38, EKG-VPACED AT 60 HR. PT. COLOR SLIGHTLY DUSKY, LEVOPHED DRIP TITRATED ACCORDINGLY PER PROTOCOL. PT. TEMPERATURE VERY COLD AT 96.5/F, PT. KEPT WARM. WILL CONTINUE TO MONITOR CLOSELY PER PROTOCOL.
--- NOTE | 2017-06-01 06:25 | NUR ---
RN/ICU- RT HERE TO PERFORM ABGS ON PT.
[2017-06-01 06:51] LABS: ABG BASE EXCESS -16.2 mmol/L; ABG OXYGEN SATURATION 98.6 % (92.0-98.5); ABG PCO2 33.6 mmHg (35.0-45.0); ABG PO2 341.3 mmHg (75.0-100.0); AaDO2 338.1 mmHg; COHb 0.3 % (0.5-1.5); MetHb 0.6 % (0.0-1.5); O2Hb 97.7 % (94.0-97.0); PEEP,BG 5 cm H2O; SITE, ABG Left Brachial; VT, ABG 500 mL
[2017-06-01] MEDS ORDERED: PANTOPRAZOLE 40 MG TABLET.DR PO SCH (07:30)
--- NOTE | 2017-06-01 08:00 | NUR ---
ICU/RN INITIAL NOTES,AM RECEIVED REPORT FROM NIGHT NURSE. PT INTUBATED WITH ETT 7.5 AND 26CM AT THE LIP. PT ON VENT SETTINGS ORDERED BY MD, NO ACUTE DISTRESS NOTED AT THIS TIME. PT ON TELE, V PACING, LEFT CHEST PACEMAKER IN PLACE. PT SEDATED WITH 8MCG OF LEVOPHED, RESPONDS TO PAINFUL STIMULI. KLINE IN PLACE, NO URINE OUTPUT NOTED. CENTRAL LINE AND PIV PATENT AND INTACT. BLEEDING NOTED TO RIGHT IJ CENTRAL LINE, PRESSURE DRESSING APPLIED, WILL REASSESS. LEVOPHED INFUSING FOR BP SUPPORT. BILATERAL WRIST RESTRAINTS IN PLACE, ASSESSED PER PROTOCOL. ALL SAFETY MEASURES TAKEN, BED IN LOW POSITION, SIDE RIALS UP, CALL LIGHT WITHIN REACH. WILL CONTINUE CARE.
[2017-06-01 08:57] LABS: ABG BASE EXCESS -14.1 mmol/L; ABG PCO2 28.9 mmHg (35.0-45.0); ABG PH 7.237 (7.350-7.450); COHb 0.3 % (0.5-1.5); MetHb 0.4 % (0.0-1.5); O2Hb 97.3 % (94.0-97.0); PEEP,BG 5 cm H2O; SITE, ABG Left Brachial; VT, ABG 600 mL
[2017-06-01] MEDS: DUTASTERIDE (0.5 MG) 0.5 MG CAPSULE PO SCH (09:00)
[2017-06-01] MEDS ORDERED: ICOSAPENT ETHYL 1 GM PO PRN (09:30)
[2017-06-01] MEDS ORDERED: PANTOPRAZOLE 40 MG VIAL IV SCH (09:30)
[2017-06-01] MEDS: ATORVASTATIN 40 MG TABLET PO SCH ×2 (09:30→19:06)
[2017-06-01] MEDS ORDERED: PAROXETINE HCL 20 MG TABLET PO PRN (10:00)
[2017-06-01] MEDS ORDERED: LENALIDOMIDE 5 MG PO SCH (10:00)
[2017-06-01] MEDS: FAMOTIDINE/PF INJ 20 MG/2 ML VIAL IV SCH (10:59)
[2017-06-01] MEDS: ASPIRIN 81 MG TAB.CHEW PO SCH (10:59)
[2017-06-01] MEDS: hydrOXYzine HCL SYRUP 10 MG/5 ML UDC PO SCH (12:34)
[2017-06-01] MEDS: PROPOFOL 100 ML IV PRN (12:39)
[2017-06-01] MEDS: NOREPINEPHRINE 16 MG in IV D5W 500 ML IV PRN ×2 (13:01→22:27)
--- NOTE | 2017-06-01 15:00 | NUR ---
ICU/RN: CALLED AND NOTIFIED OF TROPONIN LEVEL OF 1.803. NO NEW ORDERS AT THIS TIME.
--- NOTE | 2017-06-01 15:00 | NUR ---
ICU/RN: AT BEDSIDE. DISCUSSING WITH FAMILY THE PLAN OF CARE FOR THE PATIENT AND THE OPTIONS FAMILY HAS REGARDING GOALS OF CARE. FAMILY NEEDS TIME TO DECIDE BETWEEN FULL AGGRESSIVE TREATMENT AND/OR COMFORT CARE. WILL CONTINUE FULL AGGRESSIVE CARE TILL FURTHER NOTICE.
--- NOTE | 2017-06-01 15:45 | NUR ---
ICU/RN: PER MD CVP DONE, READING 19, NOTIFIED. WILL CONTINUE TO MONITOR AND ASSESS
--- NOTE | 2017-06-01 18:29 | NUR ---
ICU/RN ENDING NOTES,AM REPORT WILL BE ENDORSED TO NIGHT NURSE FOR CONTINUATION OF CARE. ALL NEEDS ATTENDED TO, PT ON VENT SETTINGS ORDERED BY MD, NO ACUTE DISTRESS NOTED AT THIS TIME. DISCUSSED IN LENGTH WITH FAMILY ALL GOALS OF CARE AND THE OPTIONS THEY HAVE. FAMILY NEEDS TIME TO DISCUSS AND MAKE A DECISION. ALL QUESTIONS ANSWERED. PER MD CVP SET UP, READINGS DOCUMENTED. HEMODIALYSIS STARTED AT THIS TIME. CENTRAL LINE DRESSING CHANGED, NO S/S OF BLEEDING NOTED. PT TURNED AND REPOSITIONED, BATHE, LINENS CHANGED. ALL SAFETY MEASURES TAKEN, BED IN LOW POSITION, SIDE RAILS UP, CALL LIGHT WITHIN REACH.
[2017-06-01] MEDS ORDERED: ALBUMIN 25% 25 GM in PREMIX 1 EA IV PRN (19:30)
--- NOTE | 2017-06-01 20:00 | NUR ---
DEPUTY DIRECTOR: RECEIVED REPORT FROM DAY NURSE HAVING DIALYSIS AT THIS TIME. PT INTUBATED WITH ETT 7.5 AND 26CM AT THE LIP. ON VENT SETTINGS AC14 TV 600 FIO2 60% PEEP 5.NO ACUTE DISTRESS NOTED AT THIS TIME. BEDSIDE MONITOR V PACING RATE OF 70-90, LEFT CHEST PACEMAKER IN PLACE. SEDATED WITH DIPRIVAN 12MCG/KG/MIN, BP SUPPORT LEVOPHED ONGOING AT 30 MCG/MIN , TITRATED TO KEEP SBP >90. RESPONDS TO PAINFUL STIMULI, MOVES WITH LOCALIZED PAIN. RIGHT IJ CENTRAL LINE AND PIV PATENT AND INTACT. BILATERAL WRIST RESTRAINTS IN PLACE FOR SAFETY REASON, RESTRAINTS ASSESSED PER PROTOCOL. ALL SAFETY MEASURES TAKEN, BED IN LOW POSITION, SIDE RIALS UP, KEEP MONITORING..
--- NOTE | 2017-06-01 21:03 | NUR ---
QUALITY LAB TECHNICIAN: VITALS ARE STABLE, CONTINUE ON LEVOPHED AT 30 MCG/MIN, SEDATED WITH DIPRIVAN AT 12 MCG/KG/MIN. DIALYSIS DONE AT 2000 ML OUT. BP BEING STABLE THROUGHOUT DIALYSIS. MONITORING CVP PER MD ORDERS. TURN AND REPOSITION FOR COMFORT. PT'S GRANDSON WAS HERE EARLIER, CONDITION UPDATED. ALL NEEDS ATTENDED. KEEP MONITORING.
[2017-06-01] MEDS: LATANOPROST EYE DROP 0.005% 2.5 ML BOTTLE EACHEYE SCH (22:08)
[2017-06-02] VITALS (103 sets, daily range): BP systolic 65–139; BP diastolic 32–75
[2017-06-02] MEDS: PROPOFOL 100 ML IV PRN ×3 (00:26→17:45)
[2017-06-02] MEDS ORDERED: IV NS 0.9% 500 ML BAG IV ONE (01:00)
[2017-06-02] MEDS ORDERED: IV NS 0.9% 500 ML BAG IV PRN (01:00)
[2017-06-02 04:40] LABS: BASOPHILS % (AUTO) 0.4 % (0.0-2.0); EOSINOPHILS % (AUTO) 0.1 % (0.0-6.0); HEMATOCRIT 32 % (39-51); HEMOGLOBIN 10.3 g/dL (13.5-17.5); LYMPHOCYTES # (AUTO) 1.5 /CMM (0.8-4.8); LYMPHOCYTES % (AUTO) 18.1 % (20.0-44.0); MEAN CORPUSCULAR HEMOGLOBIN 32 PG (26.0-33.0); MEAN CORPUSCULAR HGB CONC 33 g/dl (31.0-36.0); MEAN CORPUSCULAR VOLUME 99 fL (80-96); MONOCYTES # (AUTO) 2.3 /CMM (0.1-1.30); MONOCYTES % (AUTO) 26.8 % (2.0-12.0); NEUTROPHILS # (AUTO) 4.6 /CMM (1.8-8.9); NEUTROPHILS % (AUTO) 54.6 % (43.0-81.0); PLATELET COUNT (AUTO) 70 /CMM (150-450); RDW COEFFICIENT OF VARIATION 22.5 (11.5-15.0); WHITE BLOOD COUNT (AUTO) 8.4 K/uL (4.3-11.0)
[2017-06-02 05:12] LABS: BAND % (MANUAL) 8 % (0.0-5.0); LYMPHOCYTES % (MANUAL) 26 % (16-48); MONOCYTES % (MANUAL) 18 % (0-11.0); NEUTROPHILS % (MANUAL) 48 (42-76)
[2017-06-02 05:26] LABS: CALCIUM, SERUM 7.6 mg/dL (8.5-10.1); CREATININE 3.7 mg/dL (0.6-1.3); GLUCOSE 135 mg/dL (74-106); MAGNESIUM 1.9 mg/dL (1.8-2.4); UREA NITROGEN, BLOOD 20 mg/dL (7-18)
[2017-06-02 05:32] LABS: CARBON DIOXIDE 21 mmol/L (21-32); CHLORIDE 99 mmol/L (98-107); POTASSIUM 4.3 mmol/L (3.5-5.1); SODIUM SERUM 135 mmol/L (136-145)
[2017-06-02 05:33] LABS: CHOLESTEROL 83 mg/dL (<200); HDL CHOLESTEROL 21 mg/dL (40-60); LDL 34 mg/dL (0-99); TRIGLYCERIDES 162 mg/dL (30-150)
--- NOTE | 2017-06-02 07:49 | NUR ---
WOUND CARE CONSULT PATIENT PRESENTS WITH LOW ANNALISA AT 12. ALL PREVENTION MEASURES IN PLACE PER CURRENT PLAN OF CARE. ALL TREATMENT PLANS DISCUSSED WITH MD AND MD IN AGREEMENT. 1ST STEP LOW AIRLOSS MATTRESS ORDERED, TURNING SCHED Q 2 HOURS PATIENT CONDITION PERMITS AND BILATERAL HEEL FLOATING. CONTINUE USE OF Z GUARD FOR SKIN/MOISTURE MANAGEMENT. ALL DISCUSSED WITH NURSING AT THE BEDSIDE. Addendum: 06/02/17 at 0752 by JT MATOS WNDNU Amended: Links added.
[2017-06-02] MEDS: FLUTICASONE/VILANTEROL 1 EACH BLST.W.DEV IH SCH (09:01)
[2017-06-02] MEDS: DUTASTERIDE (0.5 MG) 0.5 MG CAPSULE PO SCH (09:02)
[2017-06-02] MEDS: ASPIRIN 81 MG TAB.CHEW PO SCH (09:02)
[2017-06-02] MEDS: NEOMY SULF/BACITRAC ZN/POLY 15 GM TUBE TP SCH (09:03)
[2017-06-02] MEDS: ATORVASTATIN 40 MG TABLET PO SCH (09:03)
[2017-06-02] MEDS: hydrOXYzine HCL SYRUP 10 MG/5 ML UDC PO SCH (09:03)
--- NOTE | 2017-06-02 10:18 | NUR ---
Dr. Galicia/Pulnhan talked with family at bedside. Updates given and questions answered. Grandson verbalized he wanted the pericardiac fluid removed. Waiting for Cardio and primary MD.
[2017-06-02] MEDS: FAMOTIDINE/PF INJ 20 MG/2 ML VIAL IV SCH (10:43)
[2017-06-02] MEDS: NOREPINEPHRINE 16 MG in IV D5W 500 ML IV PRN ×2 (10:57→20:12)
--- NOTE | 2017-06-02 16:00 | NUR ---
Per Dr. Real, patient needs to be stable for surgery and off levophed. Family aware, informed by Dr. Henderson who talked with Dr. Real.
[2017-06-02 16:59] LABS: ABG BASE EXCESS -0.5 mmol/L; ABG OXYGEN SATURATION 96.2 % (92.0-98.5); ABG PCO2 34.1 mmHg (35.0-45.0); ABG PH 7.448 (7.350-7.450); ABG PO2 94.1 mmHg (75.0-100.0); AaDO2 151.9 mmHg; COHb 0.5 % (0.5-1.5); MetHb 0.7 % (0.0-1.5); PEEP,BG 5 cm H2O; SITE, ABG Left Brachial; VT, ABG 600 mL
[2017-06-02] MEDS: LATANOPROST EYE DROP 0.005% 2.5 ML BOTTLE EACHEYE SCH (20:01)
[2017-06-03] VITALS (57 sets, daily range): BP systolic 52–122; BP diastolic 27–81
[2017-06-03] MEDS: PROPOFOL 100 ML IV PRN ×2 (01:13→08:44)
[2017-06-03] MEDS: NOREPINEPHRINE 16 MG in IV D5W 500 ML IV PRN (06:05)
--- NOTE | 2017-06-03 07:30 | NUR ---
Patient still on high dose of levophed (see IV spreadsheet), remain hypotensive continue titrate levophed gtt. Propofol on 20mcg/kg/min, respond with facial grimace, can open eyes to light pain and light touch. Afebrile, V pacing on the monitor.
[2017-06-03] MEDS: FLUTICASONE/VILANTEROL 1 EACH BLST.W.DEV IH SCH (08:38)
[2017-06-03] MEDS: hydrOXYzine HCL SYRUP 10 MG/5 ML UDC PO SCH (08:43)
[2017-06-03] MEDS: DUTASTERIDE (0.5 MG) 0.5 MG CAPSULE PO SCH (08:43)
[2017-06-03] MEDS: ATORVASTATIN 40 MG TABLET PO SCH (08:44)
[2017-06-03] MEDS: NEOMY SULF/BACITRAC ZN/POLY 15 GM TUBE TP SCH (08:44)
[2017-06-03] MEDS ORDERED: FEE PK DOSING 1 MIN EA MC ONE (09:28)
[2017-06-03] MEDS ORDERED: VANCOMYCIN 1 GM in IV D5W 250 ML IV ONE (10:00)
[2017-06-03] MEDS ORDERED: MEROPENEM 500 MG in IV NS 0.9% 50 ML IV SCH ×2 (10:00→13:00)
[2017-06-03] MEDS: FAMOTIDINE/PF INJ 20 MG/2 ML VIAL IV SCH (10:36)
--- NOTE | 2017-06-03 10:42 | NUR ---
Daughter Mayra verbalized plan to terminally extubate his father and according to her it agreed upon with most of the family. Will inform Dr. jensen
[2017-06-03] MEDS: MORPHINE SULFATE INJ 2 MG/ML DISP.SYRIN IV PRN ×3 (12:06→14:14)
--- NOTE | 2017-06-03 12:15 | NUR ---
Terminally extubated with RT [place] per family request. Daughter Mayra and at bedside. Propofol off since 1200. Morphine given 1mg as ordered by Dr. Galvez and as planned with family. Addendum: 06/03/17 at 1223 by LENIN NOBLE RN Placed on 6L of nasal cannula. HR vpacing. saturation 60%, patient having agonal breathing. hypotensive on Levophed of 30 mcg.
--- NOTE | 2017-06-03 13:26 | NUR ---
Patient agonal breathing, saturation on 60's. hypotensive on levophed of 30mcg. Turned off levophed and another dose of morphine given as requested by family.
--- NOTE | 2017-06-03 14:25 | NUR ---
RN NOTE PT DNR. FOUND ASYSTOLIC, APNEIC. PUPILS FIXED. PRONOUNCED .
--- NOTE | 2017-06-03 14:50 | NUR ---
Post mortem care rendered, no belongings at bedside. Family has not set up mortuary yet and agreed to sent the remains to [facility] while waiting for the mortuary. [facility] called and talked to Arianna with . Ok to release body to mortuary
[2017-06-04] MEDS ORDERED: VANCOMYCIN 500 MG in IV D5W 100 ML IV PRN (10:00)
== END 2017-06-03 14:25 | disposition expired | DRG 208 ==
LOC: ER 02:13 → ICU 05:29
PROVIDERS: ADMIT Family Medicine; ATTEND Internal Medicine
PROC: 5A1945Z Respiratory Ventilation, 24-96 Consecutive Hours (ICD-10-PCS; principal; 2017-06-01)
PROC: 0BH17EZ Insertion of Endotracheal Airway into Trachea, Via Natural or Artificial Opening (ICD-10-PCS; 2017-06-01)
DX: J96.00 Acute respiratory failure, unspecified whether with hypoxia or hypercapnia (principal); I21.4 Non-ST elevation (NSTEMI) myocardial infarction; I50.43 Acute on chronic combined systolic (congestive) and diastolic (congestive) heart failure; J18.9 Pneumonia, unspecified organism; N18.6 End stage renal disease; C90.00 Multiple myeloma not having achieved remission; D68.59 Other primary thrombophilia; I13.2 Hypertensive heart and chronic kidney disease with heart failure and with stage 5 chronic kidney disease, or end stage renal disease; I31.3 Pericardial effusion (noninflammatory); D61.818 Other pancytopenia; G93.1 Anoxic brain damage, not elsewhere classified; N39.0 Urinary tract infection, site not specified; Z99.11 Dependence on respirator [ventilator] status; J96.01 Acute respiratory failure with hypoxia; R57.0 Cardiogenic shock; D50.9 Iron deficiency anemia, unspecified; E03.9 Hypothyroidism, unspecified; E11.22 Type 2 diabetes mellitus with diabetic chronic kidney disease; E11.65 Type 2 diabetes mellitus with hyperglycemia; E78.00 Pure hypercholesterolemia, unspecified; E78.5 Hyperlipidemia, unspecified; F03.90 Unspecified dementia, unspecified severity, without behavioral disturbance, psychotic disturbance, mood disturbance, and anxiety; I25.10 Atherosclerotic heart disease of native coronary artery without angina pectoris; I25.5 Ischemic cardiomyopathy; I48.91 Unspecified atrial fibrillation; M10.9 Gout, unspecified; K21.9 Gastro-esophageal reflux disease without esophagitis; N40.0 Benign prostatic hyperplasia without lower urinary tract symptoms; Z51.5 Encounter for palliative care; Z79.82 Long term (current) use of aspirin; Z79.899 Other long term (current) drug therapy; Z86.73 Personal history of transient ischemic attack (TIA), and cerebral infarction without residual deficits; Z95.0 Presence of cardiac pacemaker; Z87.891 Personal history of nicotine dependence; Z98.61 Coronary angioplasty status; Z99.2 Dependence on renal dialysis; T45.1X5D Adverse effect of antineoplastic and immunosuppressive drugs, subsequent encounter; D89.9 Disorder involving the immune mechanism, unspecified
CPT/HCPCS: 31720; 36415; 36600; 70450-TC; 71010-TC; 71250-TC; 80048-TC; 80061-TC; 80076-TC; 81000-TC; 82550-TC; 82962-TC; 83735-TC; 84100-TC; 84484-TC; 85025-TC; 85730-TC; 86850-TC; 87081-TC; 87086-TC; 90935-TC; 93307-TC; 94003-TC; A4216; A4606; A6402; C1751; J2185; J2250; J2270; J2405; J3370; J3490; J7030; J7040; J7050; J7060; P9047; Q0177; Z7610